=== PATIENT | female | born 1945 | race Caucasian/White ===

== ENCOUNTER → 2017-01-03 | Outpatient (CLI) | payer OTHER, BC ==
[~2017-01-03] MED LIST: ASPI-205 PO; CYCL10TA6 PO; LEVO88TA PO; OMEGCAP2 PO; TYLOTC500 PO; VITAMIN D PO
--- NOTE | 2017-01-03 17:31 | DIAGNOSTIC IMAGING REPORT ---
ULTRASOUND RIGHT LOWER EXTREMITY VENOUS CLINICAL HISTORY: Right leg pain and swelling. COMPARISON STUDY: No priors. TECHNIQUE: Real-time, grayscale, and color Doppler sonography of the deep veins of the right lower extremity was performed from the inguinal crease to the calf. Compression and augmentation were utilized. FINDINGS: There is no sonographic evidence of deep venous thrombosis identified in the right lower extremity. The common femoral, superficial femoral, and popliteal veins are patent and normally compressible. The greater saphenous vein and the profunda femoris vein at the junction with the common femoral vein are clear. The visualized calf veins are patent. A small popliteal cyst measures 4.0 cm in length. IMPRESSION: 1. There is no sonographic evidence of deep venous thrombosis identified in the right lower extremity. 2. Small popliteal cyst. Electronically signed by: Juan Flowers M.D. 01/03/2017 5:29 PM Dictated Date/Time: 01/03/2017 5:29 PM
== END | disposition home or self-care (01) ==
LOC: C.ULTR 16:56
PROVIDERS: ATTEND Family Medicine
DX: M79.604 Pain in right leg (principal)

== ENCOUNTER → 2017-06-02 | Outpatient (CLI) | payer OTHER, BC ==
[2017-06-02 15:08] LABS: BLOOD UREA NITROGEN 21 mg/dl (7-18); CREATININE 0.75 mg/dl (0.60-1.20)
== END | disposition home or self-care (01) ==
LOC: C.LAB 13:22
PROVIDERS: ATTEND Podiatrist Foot & Ankle Surgery
DX: M72.2 Plantar fascial fibromatosis (principal)

== ENCOUNTER → 2017-06-08 | Outpatient (CLI) | payer OTHER, BC ==
[~2017-06-08] MED LIST changes: +GADAVIST IV PRN
--- NOTE | 2017-06-08 18:32 | DIAGNOSTIC IMAGING REPORT ---
MRI OF THE LEFT MID AND HINDFOOT WITHOUT A WITH GADOLINIUM CLINICAL HISTORY: M72.2 plantar fascial fibromatosis. Left foot pain. History of steroid injections. COMPARISON STUDY: No previous studies for comparison. FINDINGS: Imaging was performed in the sagittal, axial, and coronal planes, before and after the administration of 5.7 cc of intravenous Gadavist. There are no areas of marrow edema to indicate occult fracture or bone bruise. There are no areas of marrow edema to indicate osteomyelitis. There is a 5 mm focus of increased T2 signal within the medial talar dome. This likely represents either a degenerative subchondral cyst, or an old osteochondral defect with intact overlying cartilage. There is no evidence of a pathologic joint effusion. The Achilles tendon appears normal. There is thickening, edema, and enhancement of the medial plantar fascia posteriorly. The findings are indicative of a plantar fasciitis. There is no evidence of tendon rupture or Carole synovitis. IMPRESSION: Thickening, edema, and enhancement of the medial plantar fascia posteriorly. The findings are indicative of plantar fasciitis. Electronically signed by: Mark Maloney M.D. 06/08/2017 6:31 PM Dictated Date/Time: 06/08/2017 6:23 PM
== END | disposition home or self-care (01) ==
LOC: C.MRI 16:33
PROVIDERS: ATTEND Podiatrist Foot & Ankle Surgery
DX: M72.2 Plantar fascial fibromatosis (principal)

== ENCOUNTER → 2017-10-26 | Outpatient (CLI) | payer OTHER, BC ==
[~2017-10-26] MED LIST changes: -ASPI-205 PO; -GADAVIST IV PRN; +[UNRECOGNIZED DRUG - CODE] PO
--- NOTE | 2017-10-26 15:56 | DIAGNOSTIC IMAGING REPORT ---
KUB HISTORY: Acute left-sided abdominal pain ABDOMINAL PAIN COMPARISON: CT abdomen 06/12/2007 FINDINGS: The bowel gas pattern is non-obstructive. Moderate pancolonic stool. There is no organomegaly. No renal calculi. No ureteral calculi. Probable phleboliths of the pelvis. No pneumoperitoneum or pneumatosis. No fracture. IMPRESSION: 1. Nonobstructive bowel gas pattern. 2. Moderate pancolonic stool suggests constipation. 3. No renal or ureteral calculi. Electronically signed by: Babak Garay M.D. 10/26/2017 3:55 PM Dictated Date/Time: 10/26/2017 3:53 PM
== END | disposition home or self-care (01) ==
LOC: C.RAD 15:40
PROVIDERS: ATTEND Family Medicine
DX: R10.84 Generalized abdominal pain (principal)

== ENCOUNTER 2019-11-13 04:49 | Observation (INO) ==
--- NOTE | 2019-09-13 09:30 | PAT Medication Instructions ---
Medication Instructions Date of Service September 13, 2019 Home Medications anastrozole 1 mg PO QAM calcium carbonate-vitamin D3 [Calcium 600 + D(3)] 1 tab PO QAM cholecalciferol (vitamin D3) [Vitamin D3] 2,000 unit PO QAM levothyroxine 100 mcg PO QAM Multivitamin Women 50 Plus] 1 tab PO QAM omega-3 fatty acids-fish oil [Fish Oil] 1 cap PO QAM red yeast rice 600 mg PO QAM ASK your prescriber and surgeon anastrozole 1 mg PO QAM STOP taking 2 weeks before surgery (or as soon as possible if surgery is within 2 weeks) omega-3 fatty acids-fish oil [Fish Oil] 1 cap PO QAM red yeast rice 600 mg PO QAM DO NOT take the morning of surgery calcium carbonate-vitamin D3 [Calcium 600 + D(3)] 1 tab PO QAM cholecalciferol (vitamin D3) [Vitamin D3] 2,000 unit PO QAM Multivitamin Women 50 Plus] 1 tab PO QAM Take morning of surgery With a small sip of water, OTHERWISE NOTHING TO EAT OR DRINK AFTER MIDNIGHT: levothyroxine 100 mcg PO QAM Other Notes If you have any questions please call us at [phone] or [phone] or [phone] or [phone]
--- NOTE | 2019-09-16 08:23 | Anesthesiology Consultation ---
Date of Service September 16, 2019 Assessment & Plan (1) Encounter for pre-operative examination: Awaiting review of preop testing (labs, EKG, CXR). Chart Review Chart Review: Patient seen in Pre Admission Testing Teaching & Discussion Pre-Anesthesia Teaching/Discussion Notes: Instructed NPO after midnight before surgery,except medications with 15 cc of water. Medication instructions provi ded according to the PAT guidelines. History Surgery Operation Date: 10/10/19 11:10 Proposed Procedures p Right Knee Arthroplasty Uni Compartment versus Total Knee Replacement - Twan Campoverde MD Height/Weight Height: 5 ft 2 in Weight: 60.2 kg Allergies Allergy/AdvReac Type Severity Reaction Status Date / Time Sulfa (Sulfonamide AdvReac Severe GI SYMPTOMS Verified 09/16/19 08:39 Antibiotics) Medications Home Medications Medication Instructions Recorded Confirmed Last Taken anastrozole 1 mg PO QAM 09/09/19 09/09/19 Unknown calcium carbonate-vitamin D3 1 tab PO QAM 09/09/19 09/09/19 Unknown [Calcium 600 + D(3)] cholecalciferol (vitamin D3) 2,000 unit PO QAM 09/09/19 09/09/19 Unknown [Vitamin D3] levothyroxine 100 mcg PO QAM 09/09/19 09/09/19 Unknown [id number] 1 tab PO QAM 09/09/19 09/09/19 Unknown [Multivitamin Women 50 Plus] omega-3 fatty acids-fish oil [Fish 1 cap PO QAM 09/09/19 09/09/19 Unknown Oil] red yeast rice 600 mg PO QAM 09/09/19 09/09/19 Unknown Past Medical History Medical History Heartburn controlled with OTC Tums PRN History of hepatitis A resolved with intervention/as child HX: breast cancer s/p chemo/xrt, b/l mastectomy- on anastrazole Hypothyroid Osteoarthritis Exercise / Class Metabolic Activity II 4-5 Yardwork/Stairs/Walk up hill Past Surgical History Surgical History History of carpal tunnel surgery of right wrist History of lumpectomy of both breasts History of mastectomy right and left Hx of breast implants, bilateral Hx of colonoscopy Hx of tubal ligation Past Anesthesia History No Family Hx of Anesthesia Complications and Other *Patient reports with breast expanders removal/implants, she was "slow to wake" and patient had "dry mouth" with anesthesia emergence. She states subsequent surgery/anesthesia without issue.* History of PONV No Hx of PONV and No Hx of Motion Sickness Social History Smoking Status: Never smoker Do You Dip or Chew Tobacco: No Hx Alcohol Use: Yes Alcohol type: wine alcohol intake frequency: a few times a month Hx Substance Use: No Review of Systems Reflux controlled. Patient denies chest pain, shortness of breath, dyspnea on exertion, .cough, wheezing. Physical Exam Vital Signs VITALS BP 132/79 P 87 TEMP 98.1 SP02 95%RA RESP 18 PHYSICAL Full neck and c-spine range of motion. Full TMJ range of motion. TMD 2.5 finger breaths Mallampati Score 3 Dentition: intact, crowns on molars Lungs: clear throughout to auscultation Cardiac: regular rate and rhythm, no murmurs noted Spine: normal Carotid arteries: negative bruit Extremities: no edema Testing Stress Test Date: 01/13/16 Type: exercise Negative exercise stress ECHO for ischemia at 114% MPHR. Indeterminate exercise stress EKG for ischemia secondary to baseline LVH. Good functional status at 8.1 METS. No chest pain. Grade I DD. EF 60-65%. No significant valvular disease.
--- NOTE | 2019-09-16 09:08 | XRay Report ---
XR chest Pre-admission PA/Lat CLINICAL HISTORY: pat preoperative evaluation COMPARISON STUDY: 11/09/2018 FINDINGS: The bones soft tissues and hemidiaphragms are normal. The cardiomediastinal silhouette is n ormal. The lungs are clear. The pulmonary vasculature is normal. IMPRESSION: Negative chest. ACT 112: Negative or not required by law. The above report was generated using voice recognition software. It may contain grammatical, syntax or spelling errors. Electronically signed by: John Heath M.D. 09/16/2019 9:06 AM
[2019-09-16 10:00] LABS: Basophils # (auto) 0.04 K/uL (0-0.2); Basophils % (auto) 0.7 %; Eosinophils # (auto) 0.29 K/uL (0-0.5); Eosinophils % (auto) 4.9 %; Hematocrit (blood only) 40.4 % (37-47); Hemoglobin 13.6 g/dL (12.0-16.0); Immature Granulocytes # (auto) 0.01 K/uL (0.00-0.02); Immature Granulocytes % (auto) 0.2 %; Lymphocytes # (auto) 1.75 K/uL (1.2-3.4); Lymphocytes % (auto) 29.5 %; Mean Corpuscular Hemoglobin 31.1 pg (25-34); Mean Corpuscular Hgb Conc 33.7 g/dL (32-36); Mean Corpuscular Volume 92.2 fL (80-100); Mean Platelet Volume 10.5 fL (7.4-10.4); Monocytes # (auto) 0.68 K/uL (0.11-0.59); Monocytes % (auto) 11.5 %; Neutrophils # (auto) 3.16 K/uL (1.4-6.5); Neutrophils % (auto) 53.2 %; Platelet Count 260 K/uL (130-400); RDW Standard Deviation 44.2 fL (36.4-46.3); Red Blood Count 4.38 M/uL (4.2-5.4); White Blood Count 5.93 K/uL (4.8-10.8)
[2019-09-16 10:15] LABS: Partial Thromboplastin Time 26.5 Seconds (21.0-31.0); Prothrombin Time 10.3 Seconds (9.0-12.0)
[2019-09-16 10:55] LABS: BUN Creatinine Ratio 25.2 (10-20); Calcium 10.1 mg/dl (8.5-10.1); Creatinine Clr Calc Pharmacy 52.4 ml/min; Est GFR (African American) 85.6; Est GFR (Non-African American) 73.8; Potassium 4.4 mmol/L (3.5-5.1)
--- NOTE | 2019-10-06 12:51 | History and Physical Report ---
DATE OF ADMISSION: 10/10/2019 CHIEF COMPLAINT: Persistent right medial knee pain and discomfort. HISTORY OF PRESENT ILLNESS: The patient is a 74-year-old female who presents for surgical treatment of her right knee. She has had a fairly long history of right knee pain and discomfort, describes it has gotten worse over time and less unresponsive to conservative treatment. She has had injection which helped, but it is very temporarily. Pain is mostly all medial. The more she walks, the more it hurts. She limps more as the day goes on. She really like to have her knee fixed. PAST MEDICAL HISTORY: 1. Elevated cholesterol. 2. Occasional irregular heartbeat. 3. Hypothyroidism. 4. Cervical spondylosis. 5. Hepatitis A. 6. Breast cancer x2. 7. Gastroesophageal reflux disease. PAST SURGICAL HISTORY: Include: 1. Tubal ligation. 2. Lumpectomy. 3. Bilateral mastectomy with implants. 4. Revision of her left breast implant. ALLERGIES: SULFA. CURRENT MEDICINES: Include: 1. Synthroid 100 mcg a day. 2. Anastrozole 1 mg. 3. Calcium. 4. Fish oil. 5. Vitamin D. 8. Multivitamin. 9. Red yeast rice. SOCIAL HISTORY: A 74-year-old white female. She is . Does not smoke. One drink per week. MEDICAL DOCTOR: Dr. Cason. FAMILY HISTORY: Noncontributory. REVIEW OF HISTORY: Negative for diabetes, neurologic problem, vascular problems or bleeding disorders. No chest pain or shortness of breath. No DVT or PE. PHYSICAL EXAMINATION: GENERAL: Shows a pleasant, middle-aged female. Looks to be in good health. HEENT: Benign. NECK: Supple, no lymphadenopathy. LUNGS: Clear to auscultation. HEART: Has a regular rate and rhythm. ABDOMEN: Soft, nontender, nondistended. EXTREMITIES: Grossly neurovascularly intact except as follows. Examination of the right knee reveals the patient walks independently. She limps a little bit on the right side. She has got varus alignment to her knee. She has got bony hypertrophy medially. Tender over the medial joint line. Small knee effusion. Range of motion about 5 degrees short of full extension to 125 degrees of flexion. There is no instability. ACL appears intact. X-RAYS: X-rays of the right knee revealed advanced medial compartment arthritis. She has got complete loss of her medial joint space. She has subchondral sclerosis with osteophytes off the medial femoral condyle and medial tibial plateau. The lateral compartment looks well preserved on the stress films. Patellofemoral joint looks pretty clean. ASSESSMENT: A 74-year-old white female with advanced right knee medial compartment DJD. She has failed conservative treatment and elected to proceed with surgical intervention. PLAN: We will take her to the operating room and do a right partial knee replacement. If we get in there and if it is too bad, we will do a full knee replacement. The risks and benefits of this procedure were explained to the patient and include but not limited to DVT, PE, , infection, neurological injury, vascular injury, bleeding problem, pain, limited range of motion, stiffness, failure to relieve her symptoms, incomplete relief of symptoms, need for further surgery in future, fracture, leg length inequality, nerve palsy, dislocation, need for further surgery. The patient understands and desires to proceed. Informed consent was obtained.
--- NOTE | 2019-11-10 12:32 | History and Physical Report ---
DATE OF ADMISSION: 11/13/2019 CHIEF COMPLAINT: Persistent right medial knee pain and discomfort. HISTORY OF PRESENT ILLNESS: The patient is a 74-year-old female who presents for surgical treatment of her right knee. She has got a fairly long history of right knee pain and discomfort that has gradually gotten worse over time. Her symptoms are really localized to the medial side of her knee. She has been through extensive conservative treatment including injections, which helped temporarily, but become less successful over time. The more she walks, the more it hurts. Pain is mostly all medial. She limps more as the day goes on. She has nighttime pain. Difficulty going up and down stairs. She would like to have her right knee fixed. We did schedule her for knee surgery in the past and she had to reschedule, but would now like to proceed. PAST MEDICAL HISTORY: 1. Elevated cholesterol. 2. Occasional irregular heartbeat. 3. Hypothyroidism. 4. Cervical spondylosis. 5. Hepatitis A as a child. 6. Breast cancer x2. 7. Gastroesophageal reflux disease. PAST SURGICAL HISTORY: Includes: 1. Tubal ligation. 2. Lumpectomy. 3. Bilateral mastectomy with implants. 4. Revision of her left breast implant. ALLERGIES: SULFA. CURRENT MEDICINES: Include: 1. Synthroid 100 mcg a day. 2. Anastrozole 1 mg a day. 3. Calcium. 4. Fish oil. 5. Vitamin D. 6. Multivitamin. 7. Red yeast rice. SOCIAL HISTORY: A 74-year-old female. She is . Does not smoke. One drink per week. FAMILY HISTORY: Noncontributory. REVIEW OF HISTORY: Negative for diabetes, neurologic problem, vascular problems or bleeding disorders. Denies any chest pain or shortness of breath. No history of DVT or PE. PHYSICAL EXAMINATION: GENERAL: Reveals a healthy, pleasant middle-aged female. Looks to be in excellent health. HEENT: Benign. NECK: Supple, no lymphadenopathy. LUNGS: Clear to auscultation. HEART: Has a regular rate and rhythm. ABDOMEN: Soft, nontender, nondistended. EXTREMITIES: Grossly neurovascularly intact except as follows: Examination of the right knee reveals the patient walks independently. She does limp a little bit on the right side. She has got varus alignment to her knee. She has got bony hypertrophy medially. Small knee effusion. She is tender over the medial joint line. Range of motion is 5 degrees short of full extension to 125 degrees of flexion. There is no instability. ACL clinically appears intact. X-RAYS: X-rays of the right knee reviewed. Shows advanced medial compartment arthritis. She has complete loss of her medial joint space. She has subchondral sclerosis. She has got osteophytes off the medial femoral condyle and medial tibial plateau. Lateral compartment was pretty well preserved. On stress films, the patellofemoral compartments looked good. ASSESSMENT: A 74-year-old white female with advanced right knee medial compartment degenerative joint disease. She has failed all conservative treatment and would like to proceed with surgical treatment. PLAN: We are going to take her to the operating room and do a right partial knee replacement. If we get in there and the disease is too bad, we will do a full knee replacement. The risks and benefits of right partial and full knee replacement were explained to the patient including but not limited to DVT, PE, , infection, neurological injury, vascular injury, bleeding problem, pain, limited range of motion, stiffness, failure to relieve her symptoms, incomplete relief of symptoms, need for further surgery in the future, fracture, leg length inequality, nerve palsy, etc. The patient understands and desires to proceed. Informed consent was obtained.
[~2019-11-13 04:49] MED LIST changes: +ACETAMINOPHEN 500 MG TAB PO SCH; +BUPIVACAINE LIPOSOME/PF 266 MG, BUPIVACAINE/EPINEPHRINE 50 ML, SODIUM CHLORIDE 0.9% 30 ... INFIL SCH; +CEFAZOLIN 2000MG 2,000 MG/15 ML SYR IV SCH; -CYCL10TA6 PO; +FAMOTIDINE 20 MG TAB PO SCH; +GABAPENTIN 300 MG CAP PO SCH; -LEVO88TA PO; +LR 500ML BOLUS, THEN 15ML/HR IV SCH; +LR 60ML/HR IV SCH; +METOCLOPRAMIDE HCL 10 MG TABLET PO SCH; -OMEGCAP2 PO; +TRANEXAMIC ACID 1,000 MG **IV Intra-op IV SCH; -TYLOTC500 PO; -VITAMIN D PO; -[UNRECOGNIZED DRUG - CODE] PO
[2019-11-13] MEDS ORDERED: ACETAMINOPHEN 500 MG TAB PO SCH (06:00)
[2019-11-13] MEDS ORDERED: GABAPENTIN 300 MG CAP PO SCH (06:00)
[2019-11-13] MEDS ORDERED: FAMOTIDINE 20 MG TAB PO SCH (06:00)
[2019-11-13] MEDS ORDERED: TRANEXAMIC ACID 1,000 MG **IV Intra-op IV SCH (06:00)
[2019-11-13] MEDS ORDERED: METOCLOPRAMIDE HCL 10 MG TABLET PO SCH (06:00)
[2019-11-13] MEDS ORDERED: LR 500ML BOLUS, THEN 15ML/HR IV SCH (06:00)
[2019-11-13] MEDS ORDERED: CEFAZOLIN 2000MG 2,000 MG/15 ML SYR IV SCH (06:00)
[2019-11-13] MEDS ORDERED: BUPIVACAINE LIPOSOME/PF 266 MG, BUPIVACAINE/EPINEPHRINE 50 ML, SODIUM CHLORIDE 0.9% 30 ... INFIL SCH (06:00)
[2019-11-13] MEDS ORDERED: LR 60ML/HR IV SCH (06:00)
[2019-11-13] MEDS ORDERED: BUPIVACAINE 0.5 % 5 MG/1 ML PF 10ML VIAL ONE (06:27)
[2019-11-13] MEDS ORDERED: DEXAMETHASONE SOD INJ 4 MG/ML VIAL ONE (06:27)
[2019-11-13] MEDS ORDERED: BUPIVACAINE/EPINEPHRINE 0.25% 1:200,000 30 ML VIAL ONE ×2 (06:27→06:39)
[2019-11-13] MEDS ORDERED: BACITRACIN INJ 50,000 UNIT VIAL ONE (06:39)
[2019-11-13] MEDS ORDERED: SODIUM CHLORIDE 0.9% PF 50 ML VIAL ONE (06:39)
[2019-11-13] MEDS ORDERED: BUPIVACAINE LIPOSOME 1.3% 266 MG/20 ML VIAL ONE (06:39)
[2019-11-13] MEDS ORDERED: fentaNYL citrate 100 MCG/2 ML VIAL IV PRN (06:46)
[2019-11-13] MEDS ORDERED: ePHEDrine sulfate 50 MG/ML AMP IV PRN (06:46)
[2019-11-13] MEDS ORDERED: ONDANSETRON INJ 2 MG/ML 2 ML VIAL IV PRN ×2 (06:46→09:38)
[2019-11-13] MEDS ORDERED: ATROPINE SULFATE 0.1 MG/ML 10ML SYR IV PRN (06:46)
[2019-11-13] MEDS ORDERED: MIDAZOLAM HCL 1 MG/ML 2ML VIAL ONE ×3 (06:47→06:53)
[2019-11-13] MEDS ORDERED: PROPOFOL IV EMULSION 10 MG/ML 20 ML VIAL IV ONE (06:48)
[2019-11-13] MEDS ORDERED: fentaNYL citrate 100 MCG/2 ML VIAL ONE (06:53)
--- NOTE | 2019-11-13 06:54 | History & Physical Bridge Note ---
Date of Service November 13, 2019 History & Physical Bridge Note I have examined the patient, reviewed the History & Physical and in the interval since the performance of the History & Physical I have noted the following changes of clinical significance: no changes noted
--- NOTE | 2019-11-13 08:47 | Post Operative Brief Note ---
PG Immediate Post Op with CF Date of Surgery November 13, 2019 Pre & Post Diagnosis Operation Date: 11/13/19 07:00 Pre-Op Diagnosis: Right Knee Degenerative Joint Disease w/Knee Pain Post-Op Diagnosis: Right Knee Degenerative Joint Disease w/Knee Pain I identified the patient and participated in the time-out.: Yes Procedure Operation Date: 11/13/19 07:00 Actual Procedures p Right Knee Arthoplasty Uni Compartment (Right) - Twan Campoverde MD Surgeon Twan Campoverde MD Range Aide Shantell, [facility] Estimated Blood Loss 25 Findings Consistent with Post-Op Diagnosis Fluids 1300 cc Specimens Specimen Description: Permanent Specimen: A) Right Knee Bone and Tissue Drains Gerber Catheter Anesthesia Type Spinal MAC Complications none Disposition Accompanied Patient To Recovery: No Disposition: Recovery Room
--- NOTE | 2019-11-13 09:00 | Operative Report ---
Post Operative Report Pre & Post Diagnosis Operation Date: 11/13/19 07:00 Pre-Op Diagnosis: Right Knee Degenerative Joint Disease w/Knee Pain Post-Op Diagnosis: Right Knee Degenerative Joint Disease w/Knee Pain I identified the patient and participated in the time-out.: Yes Procedure Operation Date: 11/13/19 07:00 Actual Procedures p Right Knee Arthoplasty Uni Compartment (Right) - Twan Campoverde MD Surgeon Twan Campoverde MD Pasting Inspector Shantell, [facility] Estimated Blood Loss 25 Findings Consistent with Post-Op Diagnosis Operative findings revealed advanced right knee DJD with a pretty extensive gra de 4 [id number] disease of the medial femoral condyle medial tibial plateau with eburnation of both surfaces. She had a varus deformity to her knee. Her lateral and patellofemoral compartments were well preserved. She had a moderate-sized joint effusion and a moderate Ferrer's cyst. Fluids 1300 cc. Specimens Right knee sent to pathology. Drains None. Anesthesia Type Spinal MAC Complications none Disposition Disposition: Recovery Room Indications Patient is a 74-year-old female is had a very long history of a right knee pain discomfort. She been through extensive conservative treatment the past which became less successful over time. Her symptoms localize the medial side of her knee. X-rays show advanced medial compartment arthritis. The lateral and patellofemoral compartments look well-preserved. She elected proceed with right partial knee replacement. Description of Procedure Operative implants consist of: 1. Biomet Blackford size small femoral component. 2. Biomet right medial size A tibial tray. 3. 4 mm mobile-bearing polyethylene insert. Patient was taken to the operating room identified and placed on the operating table supine position protectors were properly padded. IV antibiotics arrived by anesthesia team. A spinal anesthetic and abductor canal block had provided holding area. Gerber catheter was placed in sterile fashion. Right thigh tip was then placed in the right lower extremities and prepped and draped in usual sterile fashion. The right leg was elevated exsanguinated with use of an Esmarch and turns placed at 300 mmHg. An anterior approach to the right knee was then performed to longitudinal incision beginning at the superior pole patella then extending just medial to the tibial tubercle. Sharp dissection was cut through subcutaneous tissue down to the extensor mechanism. Medial parapatellar arthrotomy incision was made. Some slight subperiosteal dissection was carried out medially taking great care to protect the MCL ligament at all times. I resected some of the fat pad. I then looked at the lateral compartment is well preserved. Her ACL was intact. The trochlea looked well preserved. We elected proceed with a partial knee replacement. The osteophytes were taken off the intercondylar notch area. The femur was sized to a small. The small spoon was placed. The external tibial alignment jig was then placed in the interface the tibia and attached to the spoon with a 4G clamp. The tibial guide was then pinned in place. The proximal tibial cut was made. The tibia sized to a size A. Attention drawn the femur. The intramedullary hole was then drilled for the intramedullary guide selina. The guide selina was placed. The femoral template was placed set at 4. It was attached to the IM selina and the holes were drilled for the femoral component. The posterior cutting guide was placed. Posterior cut was made. The 0 spigot was then used to mill the distal femur. The medial meniscus was excised. We then trialed the knee and the 4 feeler gauge fit well in flexion and the one in extension. Therefore all implants were removed and the 3 spigot was placed. Distal femur was milled again. We then trialed the knee and the 4 feeler gauge fit appropriately in both flexion extension. I elected to use these implants. The implants were removed. Posterior osteophyte cutting guide was placed. The osteotome was used to remove the posterior osteophyte. The milling device was used to open milled the anterior femur for the femoral component. The cement drill was used to create some holes in the distal femur for cement and interdigitation. The tibial tray was pinned in place. The toothbrush blade saw was used to create the keel for the tibial tray. The wound was then irrigated. We then trialed the knee one final time and the 4 feeler gauge fit appropriately in both flexion and extension. All trial implants were removed. I irrigated the wound extensively. A single batch of Palacos G cement was mixed. A Biomet Blackford size small femoral component and a size 8 tibial tray were then cemented in place. Great care was taken to remove all extraneous cement. I then placed a 4 feeler gauge the knee was brought out into 30 degrees short of full extension and pressurized until the cement hardened. A final cement check was then performed. We then trialed the knee again and I selected a 4 insert. The permanent 4 insert was then placed and tracked nicely. The knee was well-balanced. We proceeded with closure. The wounds irrigated copious pulsatile lavage solution. I did inject locally with 100 cc of combination of 20 cc of Exparel, 30 cc of normal saline, 50 cc of quarter percent Marcaine with epinephrine. Patient did receive 1 g of tranexamic acid per the tourniquet was then let down for turn time 58 minutes but hemostasis assured with electrocautery. The wound was once again irrigated. Extensor mechanism then closed with #1 Vicryl suture in [id number] fashion for extensor mechanism checked found to be intact the subcutaneous tissue then closed with 2 Dexon suture in a buried interrupted fashion skin was closed skin kate. Legs then cleaned dried a sterile dressing composed Xeroform, 4 x 4's, sterile cast padding, Adiel bandage were applied. Patient then transferred to the recovery room in stable condition. Patient tolerated procedure well no complications. I attest to the content of the Intraoperative Record and any orders documented therein. Any exceptions are noted below.
--- NOTE | 2019-11-13 09:15 | XRay Report ---
XR knee RT 1 or 2V routine HISTORY: 74 years-old Female Surgical Post Op degenerative joint disease COMPARISON: Knee radiographs 10/03/2019 TECHNIQUE: 2 views of the right knee FINDINGS: Medial compartment hemiarthroplasty changes. There is satisfactory alignment of the knee. No acute fr acture or retained foreign body. Moderate patellofemoral without significant lateral compartment oste oarthritis. Mildly demineralized appearance the bones. Anterior midline skin kate are noted along with expected postsurgical soft tissue swelling and deep tissue air with surgical drainage catheter. IMPRESSION: Expected postoperative changes status post medial compartment hemiarthroplasty. ACT 112: Negative or not required by law. The above report was generated using voice recognition software. It may contain grammatical, syntax o r spelling errors. Electronically signed by: Babak Garay M.D. 11/13/2019 9:13 AM
--- NOTE | 2019-11-13 09:34 | Anesthesiology Progress Note ---
Date of Service November 13, 2019 Anesthesia Post Procedure Vital Signs Vital Signs: Temp Pulse Pulse Resp BP Pulse Ox 11/13/19 09:25 36.7 C 83 16 126/74 99 11/13/19 09:15 82 16 113/73 99 11/13/19 09:05 78 16 123/71 100 11/13/19 08:55 36.7 C 88 16 137/69 99 11/13/19 05:50 36.8 C 79 20 139/90 94 Pain Intensity Right Knee: Pain Intensity: 7 Transfer of Care Handoff Completed per policy Notes Mental Status: alert / awake / arousable and participated in evaluation Patient Amnestic to Procedure: Yes Nausea / Vomiting: adequately controlled Pain: adequately controlled Airway Patency, RR, SpO2: stable & adequate BP & HR: stable & adequate Hydration State: stable & adequate Neuraxial Anesthesia: was administered and sensory block is resolving Anesthetic Complications: no major complications apparent and Pt Satisfied with anesthetic care
[2019-11-13] MEDS ORDERED: HYDROmorphone INJ 0.5 MG/0.5 ML SYR IV PRN (09:38)
[2019-11-13] MEDS ORDERED: [UNRECOGNIZED DRUG - OTHER] PO SCH (09:38)
[2019-11-13] MEDS ORDERED: MAGNESIUM HYDROXIDE SUSP 30 ML UDC PO PRN (09:38)
[2019-11-13] MEDS ORDERED: METOCLOPRAMIDE HCL INJ 5 MG/ML 2 ML VIAL IV PRN (09:38)
[2019-11-13] MEDS ORDERED: TRAMADOL HCL 50 MG TABLET PO PRN (09:38)
[2019-11-13] MEDS ORDERED: NALOXONE HCL 0.4 MG/1 ML VIAL/CARP IV PRN (09:38)
[2019-11-13] MEDS ORDERED: NON-FORMULARY MEDICATION (Red Yeast Rice 600 MG) PO SCH (09:38)
[2019-11-13] MEDS ORDERED: ALUMINUM/MAGNESIUM SUSP 30 ML UDC PO PRN (09:38)
[2019-11-13] MEDS ORDERED: MULTIVIT MIN IRON FA LUTEIN PO SCH (09:38)
[2019-11-13] MEDS ORDERED: bisacodyL 10 MG SUPP PR PRN (09:38)
[2019-11-13] MEDS: CHOLECALCIFEROL 1,000 UNITS 25 MCG TAB PO SCH (11:13)
[2019-11-13] MEDS: MULTIVITAMIN TAB PO SCH (11:13)
[2019-11-13] MEDS: OMEGA-3 (PURIFIED FISH OIL) 1 GM CAP PO SCH (11:13)
[2019-11-13] MEDS: ASPIRIN 81 MG ECTAB PO SCH ×2 (11:14→21:45)
[2019-11-13] MEDS: LEVOTHYROXINE SODIUM 100 MCG TABLET PO SCH (11:14)
[2019-11-13] MEDS: DOCUSATE SODIUM 100 MG CAP PO SCH ×2 (11:15→21:45)
[2019-11-13] MEDS: KETOROLAC TROMETHAMINE 15 MG/ML VIAL IV SCH ×3 (11:16→22:10)
[2019-11-13] MEDS: SODIUM CHLORIDE 0.9% 1000ML 1,000 ML IV SCH ×2 (12:43→22:45)
[2019-11-13] MEDS: ANASTROZOLE 1 MG TAB PO SCH (14:10)
[2019-11-13] MEDS: ACETAMINOPHEN 500 MG TAB PO SCH ×2 (14:12→21:45)
[2019-11-13] MEDS: CEFAZOLIN 1000MG 1,000 MG/7.5 ML SYR IV SCH ×2 (14:18→22:11)
[2019-11-13] MEDS: ASCORBIC ACID 500 MG TAB PO SCH (16:28)
[2019-11-13] MEDS ORDERED: SENNA 8.6 MG TAB PO SCH (21:00)
[2019-11-14] MEDS: LEVOTHYROXINE SODIUM 100 MCG TABLET PO SCH (05:43)
[2019-11-14] MEDS: KETOROLAC TROMETHAMINE 15 MG/ML VIAL IV SCH ×2 (05:43→10:53)
[2019-11-14] MEDS: ACETAMINOPHEN 500 MG TAB PO SCH (05:43)
--- NOTE | 2019-11-14 07:42 | Anesthesiology Progress Note ---
Date of Service November 14, 2019 Anesthesia Post Procedure Vital Signs Vital Signs: Temp Pulse Pulse Resp BP Pulse Ox 11/14/19 07:18 36.8 C 69 16 148/81 H 99 11/14/19 02:50 36.5 C 75 16 151/84 H 97 11/13/19 23:28 36.7 C 69 16 150/78 H 93 11/13/19 15:05 36.7 C 86 16 127/67 95 11/13/19 12:30 36.5 C 75 16 118/73 96 11/13/19 11:26 36.4 C L 72 16 131/75 97 11/13/19 10:30 36.4 C L 78 16 148/86 H 95 11/13/19 09:57 34.7 C L 76 16 140/80 97 11/13/19 09:30 36.5 C 80 16 127/68 11/13/19 09:25 36.7 C 83 16 126/74 99 11/13/19 09:15 82 16 113/73 99 11/13/19 09:05 78 16 123/71 100 11/13/19 08:55 36.7 C 88 16 137/69 99 Pain Intensity Right Knee: Pain Intensity: 7 Notes Mental Status: alert / awake / arousable and participated in evaluation Patient Amnestic to Procedure: Yes Nausea / Vomiting: adequately controlled Pain: adequately controlled Airway Patency, RR, SpO2: stable & adequate BP & HR: stable & adequate Hydration State: stable & adequate Neuraxial Anesthesia: was administered and sensory block resolved Anesthetic Complications: no major complications apparent and Pt Satisfied with anesthetic care
[2019-11-14] MEDS ORDERED: dexAMETHasone 4 MG TAB PO SCH (08:00)
[2019-11-14] MEDS ORDERED: CALCIUM 600MG + VIT D 400 IU TAB PO SCH (09:00)
[2019-11-14] MEDS: DOCUSATE SODIUM 100 MG CAP PO SCH (09:12)
[2019-11-14] MEDS: OMEGA-3 (PURIFIED FISH OIL) 1 GM CAP PO SCH (09:12)
[2019-11-14] MEDS: ANASTROZOLE 1 MG TAB PO SCH (09:12)
[2019-11-14] MEDS: ASPIRIN 81 MG ECTAB PO SCH (09:12)
[2019-11-14] MEDS: MULTIVITAMIN TAB PO SCH (09:12)
[2019-11-14] MEDS: CHOLECALCIFEROL 1,000 UNITS 25 MCG TAB PO SCH (09:12)
[2019-11-14] MEDS: ASCORBIC ACID 500 MG TAB PO SCH (09:13)
--- NOTE | 2019-11-14 15:27 | Progress Note ---
DATE: 11/14/2019 SUBJECTIVE: 74-year-old white female postop day 1 from a right partial knee replacement. She is doing pretty well. Really not having much pain at all in the knee. Therapy has gone well. Ready to go home. OBJECTIVE: VITAL SIGNS: Temperature 36.8. Vital signs stable. GENERAL: Shows a pleasant, middle-aged female. She is lying in bed, looks pretty comfortable this morning. LUNGS: Clear to auscultation. HEART: Regular rate and rhythm. ABDOMEN: Soft, nontender, nondistended. EXTREMITIES: Grossly neurovascularly intact except as follows: Examination of the right leg reveals the leg to be well aligned. Dressing is clean, dry and intact. She can do a straight leg raise. She can dorsiflex and plantarflex her foot appropriately. She is neurologically intact. ASSESSMENT: 74-year-old white female postop day 1 from a right partial knee replacement, doing well. Pain is controlled. She is neurologically intact. PLAN: 1. DVT prophylaxis including thigh-high TEDs, SCDs, and aspirin twice a day for a month. 2. PT/OT. She can weightbear as tolerated on the right leg. 3. Pain control, doing well with current pain regimen. We are sending her home on some Toradol and see if this helps her other knee. 4. Disposition: Plan to discharge to home with some home health after therapy today.
--- NOTE | 2019-11-15 15:45 | Discharge Summary ---
ADMITTING PHYSICIAN AND SURGEON: Dr. Twan Campoverde. ADMITTING DIAGNOSIS: Right knee degenerative joint disease. Right knee degenerative joint disease. SURGERY PERFORMED: Right knee unicompartmental arthroplasty. SECONDARY DIAGNOSES: Elevated cholesterol, irregular heartbeat, hypothyroidism, cervical spondylosis, hepatitis A breast cancer, gastroesophageal reflux disease. CONSULTS: None obtained. HISTORY AND PHYSICAL EXAMINATION: Well documented in the patient's chart. HOSPITAL COURSE: The patient was admitted on 11/14/2019 underwent partial knee replacement, tolerated the procedure well. There were no complications. She was transferred to the PACU postoperatively and later to the orthopedic for further care. She was given Ancef for antibiotic prophylaxis, BETH stockings, SCDs and aspirin for DVT prophylaxis. Vital signs were monitored during her hospital stay and remained stable. She did not require any blood transfusions. There were no complications. On postoperative day 1 she was tolerating a regular diet, pain was controlled with oral pain medicine. She was participating in physical therapy. Postop day 1 she was discharged home. She was given printed discharge instructions as well as new prescriptions for extra strength Tylenol, aspirin, ketorolac and tramadol. Continue home medicines with the exception of her home dosing of Tylenol, which was changed. Continue physical therapy, weightbearing as tolerated, BETH stockings. Follow up approximately 2 weeks postop or sooner if there are any problems or concerns.
== END 2019-11-14 11:40 | disposition home or self-care (01) ==
LOC: ASU 04:49 → 3E 04:49

== ENCOUNTER 2024-03-10 12:04 | Inpatient (IN) ==
[2024-03-10] MEDS: SODIUM CHLORIDE 0.9% 1,000 ML IV STA (12:41)
--- NOTE | 2024-03-10 12:57 | Emergency Department Note ---
Impression & Plan Babesiosis, Lyme disease, Hyponatremia, Weakness, Elevated liver function tests ED Provider Note Provider: Moreno Kramer MD DATE OF SERVICE: 03/10/2024 CHIEF COMPLAINT: Cough fatigue HISTORY OF PRESENT ILLNESS: Patient is a 79-year-old female history of hypothyroidism reports that she was at her primary doctor's for weakness body aches and fever. Was given a prescription then for cefdinir but they were unsure exactly what was causing this but to try the antibiotic. Went to express care yesterday for similar symptoms. Given an inhaler. Denies significant chest pain or shortness of breath but states feeling worse and having cough. Fever of 103 this morning. Did take some Tylenol prior to coming in. Some decreased intake but no nausea vomiting or abdominal pain. Has been having overnight some urinary frequency and may be bit of an odd color. Denies burning with urination however. No diarrhea. No falls or syncope. No other sick contacts or recent travel reported. Did use some Coricidin albuterol. Maybe a small red dot on the left forearm but no other significant rashes. No significant leg swelling reported. Generally weak and fatigued. Again generalized myalgias with minimal to no headache. PAST MEDICAL HISTORY: As noted above MEDICATIONS: Reviewed home medications SOCIAL HISTORY: PHYSICAL EXAM: GENERAL: alert and oriented in no acute distress on stretcher but very weak and fatigued in appearance, febrile Head: normocephalic and atraumatic EYES: No injection, discharge or icterus. PERRL, EOMI. NECK: Trachea midline. Supple. With good range of motion ENT: Mucous membranes pink and moist. Pharynx without erythema or exudate. LUNGS: Airway patent. No retractions. Breath sounds clear with good air entry bilaterally. HEART: Regular rate and rhythm. No chest wall tenderness ABDOMEN: Soft and non-tender, without guarding or rebound. No masses appreciable. SKIN: Acyanotic, warm, dry, with only 1 small about millimeter red dot on the left forearm appears like trace abrasion without surrounding erythema or crepitus. EXTREMITIES: Without swelling, tenderness or deformity NEUROLOGICAL: No focal deficits moving all extremities. No aphasia. No facial droop or slurred speech. EK beats per and sinus tachycardia. No PVC or PAC. No acute ST segment elevation or depression with a bit of artifact. QTc 42. CONTINUOUS CARDIAC MONITORING: was ordered and showed a heart rate of 80s-100s bpm in normal sinus rhythm to sinus tachycardia Patient's laboratory studies and imaging reviewed. Differential includes Viral syndrome, otitis, pharyngitis, pneumonia, influenza, meningitis, urinary tract infection, sepsis, bacteremia, dehydration, electrolyte abnormality, kidney dysfunction, perforation, obstruction, kidney stone, appendicitis, diverticulitis, cholecystitis, DVT, PE, ACS, as well as other pathologies. IMPRESSION/MEDICAL DECISION MAKING: Patient febrile borderline hypotensive and tachycardic here and very fatigued in appearance. Does not appear altered or meningitic. Has been on cefdinir for several days and seen by primary care as well as urgent care yesterday. Will obtain chest x-ray, respiratory viral panel, blood work including cultures and lactate. Given a liter of IV fluid to get started. Benign abdomen without acute tenderness here. Will attempt to obtain urine sample. Blood work here with mild anemia. No significant cytosis. Hyponatremia 129 with mild transaminitis and bilirubin 4.70. Procalcitonin elevated 3.7. Equivocal Lyme titer but blood smear and discussion with pathology is indicative of babesiosis that she has no travel risk factors. Given azithromycin, atovaquone, and a dose of ceftriaxone given the equivocal Lyme screen at this time. Given her age with signs of sepsis and the LFT abnormalities with babesiosis will bring her into the hospital for observation. Patient is very much in agreement given her weakness. Hospitalist team was contacted. DIAGNOSIS: Sepsis, babesiosis, weakness, hyponatremia DISPOSITION: Hospitalist will evaluate Patient was agreeable with this plan. Past Med/Surg History Problem List (Updated 03/10/24 @ 15:45 by David Coyne PA-C) Elevated transaminase level Thrombocytopenia Hyponatremia Elevated troponin Lyme disease Babesiosis Hematoma of left lower leg Bursitis of hip, right Lumbar spondylosis Status post right partial knee replacement Heartburn controlled with OTC Tums PRN HX: breast cancer s/p chemo/xrt, b/l mastectomy- on anastrazole Hypothyroid Osteoarthritis Encounter for annual routine gynecological examination Reflex incontinence (Acute) Pes anserine bursitis Degenerative arthritis of knee, bilateral Medical History Migraine headache History of hepatitis A Radius distal fracture Surgical History Hx of colonoscopy Hx of breast implants, bilateral Hx of tubal ligation History of carpal tunnel surgery of right wrist History of lumpectomy of both breasts History of mastectomy Family History Mother Breast cancer Pulmonary embolism Father Parkinson disease Denies family history of Ovarian cancer Colorectal cancer Social History Smoking Status: Never smoker Second Hand Exposure: No; Do You Dip or Chew Tobacco: No; Hx Alcohol Use: Yes Alcohol type: wine Hx Substance Use: No Preferred Language: Bur[place]ian Communication Ability: Effective Beliefs That Will Affect Care: None Current Living Situation: Spouse Feels Safe at Home: Yes Assistive Devices: Glasses and Walker Allergies Allergies Allergy/AdvReac Type Severity Reaction Status Date / Time Sulfa (Sulfonamide AdvReac Severe GI SYMPTOMS Verified 03/09/24 09:16 Antibiotics) Home Meds Home Medications Medication Instructions Recorded Confirmed calcium carbonate 600 mg-vitamin 1 tab PO QAM 09/09/19 03/10/24 D3 10 mcg (400 unit) tablet (Calcium 600 + D(3)) cholecalciferol (vitamin D3) 50 2,000 unit PO QAM 09/09/19 03/10/24 mcg (2,000 unit) capsule (Vitamin D3) omega-3 fatty acids-fish oil 360 1 cap PO QAM 09/09/19 03/10/24 mg-1,200 mg capsule (Fish Oil) red yeast rice 600 mg capsule 600 mg PO QAM 09/09/19 03/10/24 esomeprazole magnesium 40 mg 40 mg PO DAILY 05/14/20 03/10/24 capsule,delayed release (Nexium) hydrocortisone 2.5 % topical cream 1 applic topical 05/16/22 03/09/24 with perineal applicator levothyroxine 112 mcg tablet 112 mcg PO QAM 05/16/22 03/10/24 Previous Rx's Medication Instructions Recorded albuterol sulfate 90 mcg/actuation 2 puff inhalation Q6H PRN 03/09/24 aerosol inhaler shortness of breath or wheezing #8.5 grams Results & Data (ED) Vital Signs Vital Signs - 24 hr 03/10/24 12:07 03/10/24 12:27 03/10/24 12:37 Temperature 37.4 C 38.1 C H Temperature Source Oral Oral Pulse Rate 105 H 101 H Pulse Rate [Apical] Pulse Rhythm [Apical] Pulse Strength [Apical] Respiratory Rate 21 Respiratory Effort / Characteristics Respiratory Depth Respiratory Pattern Blood Pressure 96/59 L Blood Pressure [Left Arm] Blood Pressure Mean 71 Blood Pressure Mean [Left Arm] Blood Pressure Position [Left Arm] Pulse Oximetry 92 Oxygen Delivery Method Room Air Sepsis Recent Fever Within 48 Hours Yes Sepsis New/Unexplained Change in Mental Status N/A Sepsis Action Taken by Nursing No Action Required 03/10/24 13:45 03/10/24 14:42 03/10/24 15:30 Temperature 37.3 C Temperature Source Oral Pulse Rate Pulse Rate [Apical] 98 H 76 Pulse Rhythm [Apical] Regular Pulse Strength [Apical] Normal Respiratory Rate 18 20 Respiratory Effort / Characteristics Non-Labored Spontaneous Non-Labored Spontaneous Respiratory Depth Normal Normal Respiratory Pattern Regular Blood Pressure Blood Pressure [Left Arm] 113/61 113/66 Blood Pressure Mean Blood Pressure Mean [Left Arm] 78 81 Blood Pressure Position [Left Arm] Lying Sitting Pulse Oximetry 93 98 Oxygen Delivery Method Room Air Room Air Sepsis Recent Fever Within 48 Hours Sepsis New/Unexplained Change in Mental Status Sepsis Action Taken by Nursing 03/10/24 16:28 Temperature Temperature Source Pulse Rate 89 Pulse Rate [Apical] Pulse Rhythm [Apical] Pulse Strength [Apical] Respiratory Rate Respiratory Effort / Characteristics Respiratory Depth Respiratory Pattern Blood Pressure Blood Pressure [Left Arm] Blood Pressure Mean Blood Pressure Mean [Left Arm] Blood Pressure Position [Left Arm] Pulse Oximetry Oxygen Delivery Method Sepsis Recent Fever Within 48 Hours Sepsis New/Unexplained Change in Mental Status Sepsis Action Taken by Nursing Laboratory Data 03/10/24 12:25 03/10/24 12:25 Lab Results 03/10/24 03/10/24 03/10/24 Range/Units 12:25 12:47 14:49 WBC 8.48 (4.8-10.8) K/ul RBC 3.65 L (4.20-5.40) M/uL Hgb 10.8 L (12.0-16.0) g/dl Hct 30.9 L (37.0-47.0) % MCV 84.7 (80.0-100.0) fL MCH 29.6 (25.0-34.0) pg MCHC 35.0 (32.0-36.0) g/dL RDW Std Deviation 43.8 (36.4-46.3) fL RDW Coeff of Radu 14.1 (11.5-14.5) % Plt Count 35 L (130-400) K/uL MPV 11.9 (9.4-12.4) fL Immature Gran % (Auto) 0.9 % Neut % (Auto) 69.3 % Lymph % (Auto) 14.5 % [place]ahan % (Auto) 15.2 % Eos % (Auto) 0.0 % Baso % (Auto) 0.1 % Neut # (Auto) 5.87 (1.40-6.50) K/uL Lymph # (Auto) 1.23 (1.20-3.40) K/uL [place] # (Auto) 1.29 H (0.11-0.59) K/uL Eos # (Auto) 0.00 (0.00-0.50) K/uL Baso # (Auto) 0.01 (0.00-0.20) K/uL Immature Gran # (Auto) 0.08 (0.01-0.20) K/uL RBC Morphology Unremarkable PT 13.0 H (9.0-12.0) Seconds INR 1.2 H (0.9-1.1) Sodium 129 L (136-145) mmol/L Potassium 3.5 (3.5-5.1) mmol/L Chloride 97 L (98-107) mmol/L Carbon Dioxide 24 (21-32) mmol/L Anion Gap 8 (3-11) BUN 17 (6-23) mg/dl Creatinine 0.73 (0.6-1.2) mg/dl Est Cr Clr Drug Dosing 52.0 ml/min Est GFR ( Amer) 89.5 ml/min Est GFR (Non-Af Amer) 77.2 ml/min BUN/Creatinine Ratio 23.3 H (10-20) Glucose 144 H (70-99(Fasting)) mg/dl Lactate 1.4 (0.4-2.0) mmol/L Calcium 8.3 L (8.6-10.3) mg/dl Total Bilirubin 4.7 H (0.2-1.0) mg/dl AST 106 H (13-39) U/L ALT 118 H (7-52) U/L Alkaline Phosphatase 225 H (34-104) U/L Troponin I High Sens 23.0 H 22.2 H (0-14) pg/ml Total Protein 6.4 (6.0-8.3) gm/dl Albumin 3.2 L (3.4-5.0) gm/dl Globulin 3.2 (2.5-4.0) gm/dl Albumin/Globulin Ratio 1.0 (0.9-2) Lipase 5 L (11-82) U/L Procalcitonin 3.77 H (0-0.5) ng/ml Urine Color Urine Appearance (Clear) Urine pH (4.5-7.5) Ur Specific [place] (1.000-1.030) Urine Protein (Negative) Urine Glucose (UA) (Negative) Urine Ketones (Negative) Urine Blood (Negative) Urine Nitrite (Negative) Urine Bilirubin (Negative) Urine Urobilinogen (Negative) Ur Leukocyte Esterase (Negative) Urine WBC (Auto) (0-5) /hpf Urine RBC (Auto) (0-2) /hpf U Hyaline Cast (Auto) (0-2) /lpf U Epithel Cells (Auto) (0-2) /hpf Urine Bacteria (Auto) (None Seen) Adenovirus (PCR) Not Detected (NotDetected) Anaplasma Smear See Comment Babesia Smear See Comment A B. pertussis DNA (PCR) Not Detected (NotDetected) B.parapertussis DNA PCR Not Detected (NotDetected) Lyme Disease Screen Equivocal H (Negative) Lyme Tier 2 IgG Confirm Positive H (Negative) Lyme Tier 2 IgM Confirm Negative (Negative) C. pneumoniae DNA (PCR) Not Detected (NotDetected) Coronavirus OC43 (PCR) Not Detected (NotDetected) Coronavirus HKU1 (PCR) Not Detected (NotDetected) Coronavirus 229E (PCR) Not Detected (NotDetected) SARS-CoV-2 (PCR) Not Detected (NotDetected) Coronavirus NL63 (PCR) Not Detected (NotDetected) Human Metapneumovir PCR Not Detected (NotDetected) Influenza Type A (PCR) Not Detected (NotDetected) Influenza Type B (PCR) Not Detected (NotDetected) M. pneumoniae (PCR) Not Detected (NotDetected) Parainfluenza 1 (PCR) Not Detected (NotDetected) Parainfluenza 2 (PCR) Not Detected (NotDetected) Parainfluenza 3 (PCR) Not Detected (NotDetected) Parainfluenza 4 (PCR) Not Detected (NotDetected) RSV (PCR) Not Detected (NotDetected) Entero/Rhino (PCR) Not Detected (NotDetected) 03/10/24 Range/Units Unknown WBC (4.8-10.8) K/ul RBC (4.20-5.40) M/uL Hgb (12.0-16.0) g/dl Hct (37.0-47.0) % MCV (80.0-100.0) fL MCH (25.0-34.0) pg MCHC (32.0-36.0) g/dL RDW Std Deviation (36.4-46.3) fL RDW Coeff of Radu (11.5-14.5) % Plt Count (130-400) K/uL MPV (9.4-12.4) fL Immature Gran % (Auto) % Neut % (Auto) % Lymph % (Auto) % [place]ahan % (Auto) % Eos % (Auto) % Baso % (Auto) % Neut # (Auto) (1.40-6.50) K/uL Lymph # (Auto) (1.20-3.40) K/uL [place] # (Auto) (0.11-0.59) K/uL Eos # (Auto) (0.00-0.50) K/uL Baso # (Auto) (0.00-0.20) K/uL Immature Gran # (Auto) (0.01-0.20) K/uL RBC Morphology PT (9.0-12.0) Seconds INR (0.9-1.1) Sodium (136-145) mmol/L Potassium (3.5-5.1) mmol/L Chloride (98-107) mmol/L Carbon Dioxide (21-32) mmol/L Anion Gap (3-11) BUN (6-23) mg/dl Creatinine (0.6-1.2) mg/dl Est Cr Clr Drug Dosing ml/min Est GFR ( Amer) ml/min Est GFR (Non-Af Amer) ml/min BUN/Creatinine Ratio (10-20) Glucose (70-99(Fasting)) mg/dl Lactate (0.4-2.0) mmol/L Calcium (8.6-10.3) mg/dl Total Bilirubin (0.2-1.0) mg/dl AST (13-39) U/L ALT (7-52) U/L Alkaline Phosphatase (34-104) U/L Troponin I High Sens (0-14) pg/ml Total Protein (6.0-8.3) gm/dl Albumin (3.4-5.0) gm/dl Globulin (2.5-4.0) gm/dl Albumin/Globulin Ratio (0.9-2) Lipase (11-82) U/L Procalcitonin (0-0.5) ng/ml Urine Color Dark Yellow Urine Appearance Clear (Clear) Urine pH 6.0 (4.5-7.5) Ur Specific [place] 1.012 (1.000-1.030) Urine Protein 2+ H (Negative) Urine Glucose (UA) Negative (Negative) Urine Ketones Negative (Negative) Urine Blood 3+ H (Negative) Urine Nitrite Negative (Negative) Urine Bilirubin 1+ H (Negative) Urine Urobilinogen Negative (Negative) Ur Leukocyte Esterase Trace H (Negative) Urine WBC (Auto) 0-5 (0-5) /hpf Urine RBC (Auto) >20 H (0-2) /hpf U Hyaline Cast (Auto) 0-2 (0-2) /lpf U Epithel Cells (Auto) 0-2 (0-2) /hpf Urine Bacteria (Auto) None Seen (None Seen) Adenovirus (PCR) (NotDetected) Anaplasma Smear Babesia Smear B. pertussis DNA (PCR) (NotDetected) B.parapertussis DNA PCR (NotDetected) Lyme Disease Screen (Negative) Lyme Tier 2 IgG Confirm (Negative) Lyme Tier 2 IgM Confirm (Negative) C. pneumoniae DNA (PCR) (NotDetected) Coronavirus OC43 (PCR) (NotDetected) Coronavirus HKU1 (PCR) (NotDetected) Coronavirus 229E (PCR) (NotDetected) SARS-CoV-2 (PCR) (NotDetected) Coronavirus NL63 (PCR) (NotDetected) Human Metapneumovir PCR (NotDetected) Influenza Type A (PCR) (NotDetected) Influenza Type B (PCR) (NotDetected) M. pneumoniae (PCR) (NotDetected) Parainfluenza 1 (PCR) (NotDetected) Parainfluenza 2 (PCR) (NotDetected) Parainfluenza 3 (PCR) (NotDetected) Parainfluenza 4 (PCR) (NotDetected) RSV (PCR) (NotDetected) Entero/Rhino (PCR) (NotDetected) Administered Medications Acetaminophen (Acetaminophen 325 Mg Tab) 650 mg PO Q6H PRN PRN Reason: Pain or Fever Stop: 04/09/24 15:19 Last Admin: 03/10/24 16:07 Dose: 650 mg Documented By: AMENA Lactated Ringer's (Lr) 1,000 mls @ 80 mls/hr IV .[id number] ANÍBAL Stop: 04/09/24 15:29 Last Admin: 03/10/24 16:05 Dose: 80 mls/hr Documented By: AMENA Discontinued Medications Atovaquone (Atovaquone 750 Mg/5 Ml Udc) 750 mg PO ONCE ONE Stop: 03/10/24 13:36 Last Admin: 03/10/24 14:25 Dose: 750 mg Documented By: DEANN Sodium Chloride (Nss) 1,000 mls @ 999 mls/hr IV .[id number] STA Stop: 03/10/24 13:27 Last Infusion: 03/10/24 14:11 Dose: Infused Documented By: Admin: 03/10/24 12:41 Dose: 999 mls/hr Documented By: DEANN Azithromycin 500 mg/ Dextrose 255 mls @ 127.5 mls/hr IV NOW STA Stop: 03/10/24 15:33 Last Admin: 03/10/24 14:38 Dose: 127.5 mls/hr Documented By: STEVEN Ceftriaxone Sodium (Rocephin) 2,000 mg in 50 mls @ 100 mls/hr IV NOW STA Stop: 03/10/24 14:17 Last Infusion: 03/10/24 14:38 Dose: Infused Documented By: Admin: 03/10/24 13:59 Dose: 100 mls/hr Documented By: DEANN Imaging Data Radiologist's Impression: Chest X-Ray 03/10/24 12:27 SINGLE VIEW CHEST CLINICAL HISTORY: Fever FINDINGS: An AP, portable, upright chest radiograph is compared to study dated 09/16/2019. The top normal for projection noting atherosclerotic calcification of the thoracic aorta. The pulmonary vasculature is noncongested. Chronic interstitial thickening is similar to previous. There is bibasilar scarring/atelectasis. The lungs and pleural spaces are otherwise clear. No pneumothorax is seen. The skeletal structures are osteopenic. The bony thorax is grossly intact. A benign-appearing chondroid lesion is again seen in the right proximal humerus. There are bilateral axillary surgical clips. IMPRESSION: No active disease in the chest. ACT 112: Negative or not required by law. Electronically signed by: Juan Flowers M.D. 03/10/2024 2:02 PM Discharge Plan Visit Data Chief Complaint: Illness Stated Complaint: NOT FEELING WELL SINCE LAST MONDAY ED Provider: Moreno Kramer Discharge Problem: Babesiosis, Lyme disease, Hyponatremia, Weakness, Elevated liver function tests Patient Disposition: Being Evaluated by Hospitalist Forms Stand Alone Forms: My [facility] Prescriptions Prescriptions: No Action esomeprazole magnesium [Nexium] 40 mg capsule,delayed release(DR/EC) 40 mg PO DAILY hydrocortisone 2.5 % cream with perineal applicator 1 applic topical levothyroxine 112 mcg tablet 112 mcg PO QAM albuterol sulfate 90 mcg/actuation HFA aerosol inhaler 2 puff inhalation Q6H PRN (Reason: shortness of breath or wheezing) Qty: 8.5 0RF red yeast rice 600 mg Capsule 600 mg PO QAM calcium carbonate-vitamin D3 [Calcium 600 + D(3)] 600 mg(1,500mg) -400 unit Tablet 1 tab PO QAM omega-3 fatty acids-fish oil [Fish Oil] 360-1,200 mg Capsule 1 cap PO QAM cholecalciferol (vitamin D3) [Vitamin D3] 50 mcg (2,000 unit) Capsule 2,000 unit PO QAM Referrals Referrals: Andrea Cason [Primary Care Provider] -
[2024-03-10 12:59] LABS: Albumin Level 3.2 gm/dl (3.4-5.0); BUN Creatinine Ratio 23.3 (10-20); Bilirubin,Total 4.7 mg/dl (0.2-1.0); Calcium 8.3 mg/dl (8.6-10.3); Est GFR (African American) 89.5 ml/min; Est GFR (Non-African American) 77.2 ml/min; Globulin 3.2 gm/dl (2.5-4.0); Potassium 3.5 mmol/L (3.5-5.1); Total Protein 6.4 gm/dl (6.0-8.3)
[2024-03-10 13:11] LABS: INR 1.2 (0.9-1.1)
[2024-03-10 13:12] LABS: Procalcitonin 3.77 ng/ml (0-0.5)
[2024-03-10 13:33] LABS: Hematocrit (blood only) 30.9 % (37.0-47.0); Hemoglobin 10.8 g/dl (12.0-16.0); Mean Corpuscular Hemoglobin 29.6 pg (25.0-34.0); Mean Corpuscular Volume 84.7 fL (80.0-100.0); Mean Platelet Volume 11.9 fL (9.4-12.4); Platelet Count 35 K/uL (130-400); RDW Coefficient of Variation 14.1 % (11.5-14.5); RDW Standard Deviation 43.8 fL (36.4-46.3); Red Blood Count 3.65 M/uL (4.20-5.40); White Blood Count 8.48 K/ul (4.8-10.8)
[2024-03-10 13:38] LABS: Lyme Screen Rflx Confirmation Equivocal (Negative)
[2024-03-10 13:44] LABS: Adenovirus PCR Not Detected (NotDetected); Bordetella parapertussis PCR Not Detected (NotDetected); Bordetella pertussis PCR Not Detected (NotDetected); Chlamydia pneumoniae PCR Not Detected (NotDetected); Coronavirus 229E PCR Not Detected (NotDetected); Coronavirus CoV-2 (COVID19)PCR Not Detected (NotDetected); Coronavirus HKU1 PCR Not Detected (NotDetected); Coronavirus NL63 PCR Not Detected (NotDetected); Coronavirus OC43PCR Not Detected (NotDetected); Human Metapneumovirus PCR Not Detected (NotDetected); Influenza A PCR Not Detected (NotDetected); Influenza B PCR Not Detected (NotDetected); Mycoplasma pneumoniae PCR Not Detected (NotDetected); Parainfluenza Virus 1 PCR Not Detected (NotDetected); Parainfluenza Virus 2 PCR Not Detected (NotDetected); Parainfluenza Virus 3 PCR Not Detected (NotDetected); Parainfluenza Virus 4 PCR Not Detected (NotDetected); Respiratory Syncytial VirusPCR Not Detected (NotDetected); Rhinovirus/Enterovirus PCR Not Detected (NotDetected)
[2024-03-10 13:50] LABS: Basophils # (auto) 0.01 K/uL (0.00-0.20); Basophils % (auto) 0.1 %; Immature Granulocytes # (auto) 0.08 K/uL (0.01-0.20); Immature Granulocytes % (auto) 0.9 %; Lymphocytes # (auto) 1.23 K/uL (1.20-3.40); Lymphocytes % (auto) 14.5 %; Monocytes # (auto) 1.29 K/uL (0.11-0.59); Monocytes % (auto) 15.2 %; Neutrophils # (auto) 5.87 K/uL (1.40-6.50); Neutrophils % (auto) 69.3 %; RBC Morphology Unremarkable
[2024-03-10] MEDS: cefTRIAXone SODIUM 2,000 MG/50 ML BAG IV STA (13:59)
--- NOTE | 2024-03-10 14:04 | XRay Report ---
SINGLE VIEW CHEST CLINICAL HISTORY: Fever FINDINGS: An AP, portable, upright chest radiograph is compared to study dated 09/16/2019. The top no rmal for projection noting atherosclerotic calcification of the thoracic aorta. The pulmonary vascula ture is noncongested. Chronic interstitial thickening is similar to previous. There is bibasilar scar ring/atelectasis. The lungs and pleural spaces are otherwise clear. No pneumothorax is seen. The skel etal structures are osteopenic. The bony thorax is grossly intact. A benign-appearing chondroid lesio n is again seen in the right proximal humerus. There are bilateral axillary surgical clips. IMPRESSION: No active disease in the chest. ACT 112: Negative or not required by law. Electronically signed by: Juan Flowers M.D. 03/10/2024 2:02 PM
[2024-03-10 14:12] LABS: Lyme Ab IgG 2nd Tier Confirm Positive (Negative); Lyme Ab IgM 2nd Tier Confirm Negative (Negative)
[2024-03-10] MEDS: ATOVAQUONE 750 MG/5 ML UDC PO ONE (14:25)
[2024-03-10] MEDS: AZITHROMYCIN 500 MG in DEXTROSE 5% 250 ML IV STA (14:38)
[2024-03-10 15:01] LABS: Appearance Urine Clear (Clear); Bacteria Urine Automated None Seen (None Seen); Bilirubin Urine 1+ (Negative); Blood Urine 3+ (Negative); Cast Urine Automated 0-2 /lpf (0-2); Color Urine Dark Yellow; Epithelial Cell Urine Auto 0-2 /hpf (0-2); Glucose Urine UA Negative (Negative); Ketones Urine Negative (Negative); Leukocyte Esterase Urine Trace (Negative); Nitrite Urine Negative (Negative); Protein Urine 2+ (Negative); RBC Urine Automated >20 /hpf (0-2); Specific Gravity Urine 1.012 (1.000-1.030); Urobilinogen Urine Negative (Negative); WBC Urine Automated 0-5 /hpf (0-5)
--- NOTE | 2024-03-10 15:15 | History & Physical Report ---
Date of Service March 10, 2024 Assessment & Plan (1) Babesiosis: Plan: Fever, dry cough, and weakness that began on Monday 03/05 Patient denies seeing a tick bite or developing a rash [place], and feeds the deer in her backyard No international travel Transaminitis, thrombocytopenia Babesiosis (+) on arrival Azithromycin 500 mg IV given in the ED Continue with 250mg IV daily Atovaquone 750 mg p.o. BID Supportive care Acetaminophen as needed for pain/fever A.m. CBC, CMP, mag, TSH (2) Lyme disease: Plan: Lyme (+) on arrival Rocephin 2000 mg IV q24h (3) Elevated troponin: Plan: Mild; elevated troponin 23->22 on arrival Clinically, patient denies chest pain, pleuritic CP, or SOB Continuous telemetry monitoring (4) Hyponatremia: Plan: Na 129 on arrival IVF with LR at 80mL/hr Follow a.m. labs (5) Reflex incontinence: Plan: 1 episode of urinary incontinence UA ordered, pending (6) Thrombocytopenia: (7) Elevated transaminase level: Plan Disposition: Obs - Admit to PCU telemetry Full code Regular diet VTE PPx: SCDs; hold chemical DVT PPx in the setting of low platelet count History of Present Illness Chief Complaint: Fever, joint aches Primary Care Provider: Andrea Buckley is a pleasant 79yo female with PMH of breast cancer, hypothyroidism, reflux incontinence, pes anserine bursitis, and lumbar spondylosis. She presented for worsening weakness, body aches, dry cough and fever that first began to develop on Monday 03/05. She went to her PCP on 03/07 and was prescribed cefdinir. She then went to urgent care on Monday, and was given decongestant and antihistamines. She has been taking Tylenol at home for her intermittent fever, with her highest reading being 103.3 F this morning. Patient took all her regular medications today. She has never had a tickborne illness before. She has not noticed any ticks on her body or recent rashes, but she does note that she is outside a lot. No recent hiking. No recent international travel. Patient reports she does live in [place] area with lots of deer. Patient is denies smoking, tobacco use, and recent alcohol use; occasional alcohol use 1-2 glasses of wine per week. No supplemental oxygen at baseline or CPAP at night. Patient is mildly tachycardic around 100 bpm at time of admission; SpO2 93% on RA: Vitals otherwise stable. ED Course: Atovaquone 750mg p.o. NSS 1000 mL IV Rocephin 2000 mg IV Azithromycin 500mg IV ROS: Patient endorses fever, chills, night-sweats, MCDONALD, body aches, joint pain, dry cough, wheezing, and one episode of urinary incontinence while trying to get to bathroom last night (unusual for her; patient attributes it to steroids given at urgent care). Patient denies dizziness, lightheadedness, rashes, chest pain, SOB, pleuritic CP, chest palpitations, hemoptysis, abdominal pain, N/V/D, change in urinary/bowel habits, burning with urination, blood in urine/stool, or numbness/tingling in the arms or legs. Allergies Allergy/AdvReac Type Severity Reaction Status Date / Time Sulfa (Sulfonamide AdvReac Severe GI SYMPTOMS Verified 03/09/24 09:16 Antibiotics) Home Medications Medication Instructions Recorded Confirmed Type calcium carbonate 600 mg-vitamin 1 tab PO QAM 09/09/19 03/10/24 History D3 10 mcg (400 unit) tablet (Calcium 600 + D(3)) cholecalciferol (vitamin D3) 50 2,000 unit PO QAM 09/09/19 03/10/24 History mcg (2,000 unit) capsule (Vitamin D3) omega-3 fatty acids-fish oil 360 1 cap PO QAM 09/09/19 03/10/24 History mg-1,200 mg capsule (Fish Oil) red yeast rice 600 mg capsule 600 mg PO QAM 09/09/19 03/10/24 History esomeprazole magnesium 40 mg 40 mg PO DAILY 05/14/20 03/10/24 History capsule,delayed release (Nexium) hydrocortisone 2.5 % topical cream 1 applic topical 05/16/22 03/09/24 History with perineal applicator levothyroxine 112 mcg tablet 112 mcg PO QAM 05/16/22 03/10/24 History albuterol sulfate 90 mcg/actuation 2 puff inhalation Q6H PRN 03/09/24 03/10/24 Rx aerosol inhaler shortness of breath or wheezing #8.5 grams Past Med/Surg History Problem List (Updated 03/10/24 @ 15:45 by David Coyne PA-C) Elevated transaminase level Thrombocytopenia Hyponatremia Elevated troponin Lyme disease Babesiosis Hematoma of left lower leg Bursitis of hip, right Lumbar spondylosis Status post right partial knee replacement Heartburn controlled with OTC Tums PRN HX: breast cancer s/p chemo/xrt, b/l mastectomy- on anastrazole Hypothyroid Osteoarthritis Encounter for annual routine gynecological examination Reflex incontinence (Acute) Pes anserine bursitis Degenerative arthritis of knee, bilateral Medical History Migraine headache History of hepatitis A Radius distal fracture Surgical History Hx of colonoscopy Hx of breast implants, bilateral Hx of tubal ligation History of carpal tunnel surgery of right wrist History of lumpectomy of both breasts History of mastectomy Family History Mother Breast cancer Pulmonary embolism Father Parkinson disease Denies family history of Ovarian cancer Colorectal cancer Social History Smoking Status: Never smoker Second Hand Exposure: No; Do You Dip or Chew Tobacco: No; Hx Alcohol Use: Yes Alcohol type: wine Hx Substance Use: No Preferred Language: Comoran Communication Ability: Effective Beliefs That Will Affect Care: None Current Living Situation: Spouse Feels Safe at Home: Yes Assistive Devices: Glasses and Walker Review of Systems Review of Systems: See HPI above Physical Exam Physical Exam: General: no acute distress; diaphoretic; pleasant affect; non-toxic appearing; cooperative; SpO2 93% on RA HEENT: normocephalic, atraumatic; no scleral icterus; PERRLA; moist mucus membrane; vision and hearing grossly intact Neck: supple; trachea midline Skin: Jaundice; warm, moist without signs of tenting; no cyanosis; no rashes, bruising, lesions, or erythema noted CV: chest wall NTP; RRR; S1/S2 normal; no murmurs/rubs/gallops; pulses intact and symmetric at radial, DP, and PT Lungs: no acute respiratory distress; symmetrical chest wall expansion; clear breath sounds across all lung schwab w/o adventitious sounds; no wheezing ABD: Soft, NTP; BS present; no rebound/guarding; no distention MSK: no tics or fasciculations; no edema noted in the LEs b/l, nonerythematous Neuro: A&Ox3; normal mood and affect; fluent speech; no focal deficits; sensation grossly intact in the LEs b/l Results & Data Results & Data Vital Signs (Past 12 Hours) Vital Signs Temp Pulse Pulse Resp BP BP Pulse Ox 03/10/24 14:42 98 H 18 113/61 93 03/10/24 13:45 37.3 C 03/10/24 12:37 101 H 03/10/24 12:27 38.1 C H 03/10/24 12:07 37.4 C 105 H 21 96/59 L 92 O2 Del Method 03/10/24 14:42 Room Air 03/10/24 13:45 03/10/24 12:37 03/10/24 12:27 03/10/24 12:07 Room Air Laboratory Results Abnormal lab results 03/10/24 03/10/24 Range/Units 12:25 Unknown RBC 3.65 L (4.20-5.40) M/uL Hgb 10.8 L (12.0-16.0) g/dl Hct 30.9 L (37.0-47.0) % Plt Count 35 L (130-400) K/uL Finney # (Auto) 1.29 H (0.11-0.59) K/uL PT 13.0 H (9.0-12.0) Seconds INR 1.2 H (0.9-1.1) Sodium 129 L (136-145) mmol/L Chloride 97 L (98-107) mmol/L BUN/Creatinine Ratio 23.3 H (10-20) Glucose 144 H (70-99(Fasting)) mg/dl Calcium 8.3 L (8.6-10.3) mg/dl Total Bilirubin 4.7 H (0.2-1.0) mg/dl AST 106 H (13-39) U/L ALT 118 H (7-52) U/L Alkaline Phosphatase 225 H (34-104) U/L Troponin I High Sens 23.0 H (0-14) pg/ml Albumin 3.2 L (3.4-5.0) gm/dl Lipase 5 L (11-82) U/L Procalcitonin 3.77 H (0-0.5) ng/ml Urine Protein 2+ H (Negative) Urine Blood 3+ H (Negative) Urine Bilirubin 1+ H (Negative) Ur Leukocyte Esterase Trace H (Negative) Urine RBC (Auto) >20 H (0-2) /hpf Babesia Smear See Comment A Lyme Disease Screen Equivocal H (Negative) Lyme Tier 2 IgG Confirm Positive H (Negative) Diagnostic Findings Chest X-Ray 03/10/24 12:27 SINGLE VIEW CHEST CLINICAL HISTORY: Fever FINDINGS: An AP, portable, upright chest radiograph is compared to study dated 09/16/2019. The top normal for projection noting atherosclerotic calcification of the thoracic aorta. The pulmonary vasculature is noncongested. Chronic interstitial thickening is similar to previous. There is bibasilar scarring/atelectasis. The lungs and pleural spaces are otherwise clear. No pneumothorax is seen. The skeletal structures are osteopenic. The bony thorax is grossly intact. A benign-appearing chondroid lesion is again seen in the right proximal humerus. There are bilateral axillary surgical clips. IMPRESSION: No active disease in the chest. ACT 112: Negative or not required by law. Electronically signed by: Juan Flowers M.D. 03/10/2024 2:02 PM ECG Additional Comments: ECG revealed sinus tachycardia at 103 bpm; QTc 482 Code Status & VTE Plan Code Status Full code VTE Prophylaxis Plan VTE Prophylaxis will be ordered: Yes Supervising Physician Co-Signing Physician Notes I have personally seen, evaluated and examined the patient. I have also person ally discussed the management of the patient with the resident physician/LEOBARDO and I agree with the exam findings documented in the history and physical examination and the documented assessment and plan unless otherwise stated below. Brief Exam: In general very pleasant 79-year-old female who is alert and oriented x 3 at the time of my exam she is accompanied by both her and her brother at the time of my examination. She interacts appropriately pleasantly. HEENT: Normocephalic atraumatic. Heart: Regular rate and rhythm I do not appreciate any murmur or ectopy or rub. Lungs: Are clear. Abdomen: Soft nontender positive bowel sounds no appreciable hepatoorganomegaly. Extremities: Intact no appreciable clubbing cyanosis or edema Neurologically she is alert and oriented x 3 she has had no confusion she has had no headaches no clinical evidence of neuro Lyme at this time. Assessment/plan: As discussed above. Please refer to orders for further planning. Will continue triple antimicrobial therapy waiting for confirmatory testing for the tickborne illness panel. PG Care Time/CCT Total # of Minutes Spent Total Time Spent with Patient: Total time spent is greater than 50% in coordination of care (as documented) at patient's floor/unit and/or counseling patient: [place] [address] INT INP/OBS CARE 3/75MIN Patient Type New Medical Decision Making High Complexity Diagnoses Babesiosis B60.00 Lyme disease A69.20 Elevated troponin R79.89 Hyponatremia E87.1 Reflex incontinence N39.498 Thrombocytopenia D69.6 Elevated transaminase level R74.01
[2024-03-10] MEDS: LACTATED RINGER'S 1,000 ML IV SCH (16:05)
[2024-03-10] MEDS: ACETAMINOPHEN 325 MG TAB PO PRN (16:07)
[2024-03-10] MEDS: BENZONATATE 100 MG CAPSULE PO PRN (22:11)
[2024-03-10 23:50] LABS: Appearance Urine Clear (Clear); Bacteria Urine Automated None Seen (None Seen); Bilirubin Urine 1+ (Negative); Blood Urine 3+ (Negative); Cast Urine Automated 0-2 /lpf (0-2); Color Urine Dark Yellow; Epithelial Cell Urine Auto 0-2 /hpf (0-2); Glucose Urine UA Negative (Negative); Ketones Urine Negative (Negative); Leukocyte Esterase Urine Trace (Negative); Nitrite Urine Negative (Negative); Protein Urine 2+ (Negative); RBC Urine Automated >20 /hpf (0-2); Specific Gravity Urine 1.016 (1.000-1.030); Urobilinogen Urine Positive (Negative); WBC Urine Automated 0-5 /hpf (0-5)
[2024-03-11] MEDS ORDERED: Nursing to Pharmacy Communication SCH (01:00)
[2024-03-11] MEDS: LABETALOL HCL IV 5 MG/ML 20ML IV STA (04:23)
[2024-03-11] MEDS: ALBUT/IPRATROP 3MG/0.5MG NEB 3 ML VIAL NEB STA (05:36)
--- NOTE | 2024-03-11 05:38 | Communication Note ---
Date of Service: March 11, 2024 Patient with increasing oxygen requirement at night. Was on 1 L and then required 4 L. Saw patient bedside, dry cough that has not been improving. Patient continues to feel achy, feverish, and unwell. Physical exam revealed tachycardia, mild rales bilaterally bibasilar, no wheezing or rhonchi. No lower extremity edema. Chest x-ray ordered which showed increase in pulmonary congestion. Will stop fluids at this time, give 20 mg Lasix, 25 mg of albumin 25%. No history of congestive heart failure, though unsure if patient has ever had a echo in the past. Will closely monitor respiratory status till the a.m.
[2024-03-11] MEDS: FUROSEMIDE INJ 20 MG/2 ML VIAL IV ONE (05:45)
[2024-03-11] MEDS: ALBUMIN 25% 25 GM/100 ML VIAL IV ONE (05:46)
[2024-03-11] MEDS: LEVOTHYROXINE SODIUM 112 MCG TABLET PO SCH (05:47)
[2024-03-11 06:35] LABS: Hematocrit (blood only) 27.1 % (37.0-47.0); Hemoglobin 9.2 g/dl (12.0-16.0); Mean Corpuscular Hemoglobin 28.9 pg (25.0-34.0); Mean Corpuscular Hgb Conc 33.9 g/dL (32.0-36.0); Mean Corpuscular Volume 85.2 fL (80.0-100.0); Mean Platelet Volume 12.9 fL (9.4-12.4); Platelet Count 44 K/uL (130-400); RDW Coefficient of Variation 14.3 % (11.5-14.5); RDW Standard Deviation 44.5 fL (36.4-46.3); Red Blood Count 3.18 M/uL (4.20-5.40); White Blood Count 7.07 K/ul (4.8-10.8)
[2024-03-11 07:05] LABS: Albumin Level 2.7 gm/dl (3.4-5.0); BUN Creatinine Ratio 21.7 (10-20); Bilirubin,Total 3.7 mg/dl (0.2-1.0); Calcium 7.8 mg/dl (8.6-10.3); Creatinine Clr Calc Pharmacy 58.2 ml/min; Est GFR (African American) 99.1 ml/min; Est GFR (Non-African American) 85.5 ml/min; Globulin 2.7 gm/dl (2.5-4.0); Magnesium 1.6 mg/dl (1.7-2.4); Potassium 3.1 mmol/L (3.5-5.1); Total Protein 5.4 gm/dl (6.0-8.3)
--- NOTE | 2024-03-11 07:06 | XRay Report ---
XR chest 1V portable CLINICAL HISTORY: worsening SOB TECHNIQUE: Single frontal radiograph of the chest was obtained. Comparison: Comparison is made to chest radiograph 03/10/2024 FINDINGS: No lines and tubes are seen. The cardiomediastinal silhouette is stable. Bilateral lower lung predomi nant airspace opacities are seen. Prominent pulmonary vasculature and Salty B-lines are seen. No shonna dence of pleural effusion or pneumothorax. IMPRESSION: Moderate pulmonary edema, new from prior exam. Bibasilar airspace opacities may represent atelectasis , pneumonia, aspiration, or alveolar edema. ACT 112: Negative or not required by law. Electronically signed by: Ayden Mcmanus M.D. 03/11/2024 7:04 AM
[2024-03-11 07:19] LABS: Basophils # (auto) 0.01 K/uL (0.00-0.20); Basophils % (auto) 0.1 %; Immature Granulocytes # (auto) 0.04 K/uL (0.01-0.20); Immature Granulocytes % (auto) 0.6 %; Lymphocytes # (auto) 1.23 K/uL (1.20-3.40); Lymphocytes % (auto) 17.4 %; Monocytes # (auto) 1.08 K/uL (0.11-0.59); Monocytes % (auto) 15.3 %; Neutrophils # (auto) 4.71 K/uL (1.40-6.50); Neutrophils % (auto) 66.6 %; RBC Morphology Unremarkable; Thyroid Stimulating Hormone 2.215 uIu/ml (0.300-4.500)
--- NOTE | 2024-03-11 07:56 | Electrocardiogram Report ---
Test Reason : Blood Pressure : / mmHG Vent. Rate : 103 BPM Atrial Rate : 103 BPM P-R Int : 136 ms QRS Dur : 066 ms QT Int : 368 ms P-R-T Axes : 036 049 060 degrees QTc Int : 482 ms Sinus tachycardia Possible Old Septal infarct Abnormal ECG When compared with ECG of 16-SEP-2019 08:43, Criteria for Septal infarct now present QT has lengthened Confirmed by Dino Guerrero ([id number]) on 03/11/2024 7:56:16 AM Referred By: REFERRED SELF Confirmed By:Dino Guerrero
--- NOTE | 2024-03-11 08:00 | Hospitalist Progress Note ---
Date of Service March 11, 2024 Assessment & Plan (1) Babesiosis: Plan: Babesiosis - Acute -Fever, dry cough, and weakness that began on Monday 03/05. Patient denies seeing a tick bite or developing a rash. No international travel. -Positive for Babesiosis on smear, PCR pending. - s/p Azithromycin 500 mg IV given in the ED * Blood cultures pending * Continue Azithromycin 250mg IV daily and Atovaquone 750 mg p.o. BID * Acetaminophen as needed for pain/fever Transaminitis - Resolving -In the context of Babesiosis, downtrending Thrombocytopenia - Resolving -In the context of Babesiosis, trending upward Pulmonary Edema, Mild - Acute -Patient endorsing cough. Increased oxygen demand on 4L nasal cannula due to SOB overnight -Occurred after receiving fluids -XR chest 1V portable: Moderate pulmonary edema, new from prior exam. Bibasilar airspace opacities may represent atelectasis, pneumonia, aspiration, or alveolar edema. * Wean off oxygen, continue to evaluate * If symptoms worsen, consider echo and Lasix * Flutter valve respiratory therapy Positive Lyme Disease Screen and IgG -Negative IgM. Positive screen and IgG likely attributed to prior infection. -s/p Rocephin 2000 mg IV in ED * Discontinued Rocephin Elevated troponin - Resolving -Patient does not endorse chest pain or SOB -23.0 on admission, downtrending Hyponatremia - Resolving -Na 129 on arrival -s/p LR at 80mL/hr * Trend labs Reflex incontinence - Acute -1 episode of urinary incontinence * UA pending FEN: Heart healthy Code status: full code DVT ppx: SCDs; hold chemical DVT PPx in the setting of low platelet count Dispo: Obs - Admit to PCU telemetry (2) Lyme disease: (3) Elevated troponin: (4) Hyponatremia: (5) Reflex incontinence: (6) Thrombocytopenia: (7) Elevated transaminase level: Admission and Anticipated Discharge Date Admission Date: March 10, 2024 Supervising Physician Co-Signing Physician Notes Attending Physician Supervision Note: I independently interviewed and examined the patient and verified the mathew history and physical, reviewed labs and image studies and agree with findings and care plan noted above. fever +, breathing improved, no chest pain, no abd pain. comfortable in bed, basilar crackles, no resp distress, RRR, Babesiosis - atovaquone and azithromycin Pulmonary edema with hypoxia - with 1L fluid - s/p one dose lasix. assess cardiac fx with echo. Equivocal lyme testing - neg IgM titer. received dose of rocephine in ED. will d/c since IgM neg. Subjective Overnight events: Still coughing and feeling weak, but improved from yesterday. Cough improved with albuterol. Indorsing mild headache, responsive to Tylenol. No longer having fever, chills, urinary incontinence. Bowel/bladder concerns: Patient is able to urinate and defecate without concern. Nutritional Status: Has been able to eat and drink without concern. Mobility: Has been able to ambulate without assistance or issue. Review of Systems 2 Review of Systems: See HPI, otherwise negative Physical Exam 2 Physical Exam: Constitutional: Frail-appearing, no acute distress HEENT: NCAT, no conjunctival injection, no scleral icterus. On nasal cannula. CV: regular rate and rhythm, no murmur appreciated, extremities well-perfused, no LE edema Resp: CTABL, no wheezes/rales/rhonchi appreciated,no increased work of breathing. Deep breathing triggers cough. GI: soft, nondistended, nontender, BS normoactive MSK: no gross deformities appreciated Skin: warm, dry, no rash appreciated. Large circular area of edema and purple/brown discoloration on the the left medical knee leg. Neuro: alert, oriented, no focal neurologic deficits appreciated Results & Data Results & Data Vital Signs (Past 12 Hours) Vital Signs Temp Pulse Pulse Resp BP BP Pulse Ox 03/11/24 05:24 100.0 F H 103 H 124/65 03/11/24 05:08 94 03/11/24 05:08 03/11/24 04:39 106 H 151/79 H 03/11/24 04:31 101.1 F H 93 03/11/24 04:23 118 H 164/86 H 03/11/24 03:01 98.1 F 106 H 18 148/74 H 90 03/10/24 23:48 94 03/10/24 23:22 03/10/24 23:11 98.1 F 109 H 18 105/58 L 88 L 03/10/24 23:00 111 H 03/10/24 20:00 99.0 F 116 H 18 134/71 94 03/10/24 19:24 100.0 F H 119 H 18 147/79 H 93 O2 Del Method O2 Flow Rate 03/11/24 05:24 03/11/24 05:08 Nasal Cannula 4 03/11/24 05:08 Nasal Cannula 4 03/11/24 04:39 03/11/24 04:31 Nasal Cannula 2 03/11/24 04:23 03/11/24 03:01 Nasal Cannula 1 03/10/24 23:48 Nasal Cannula 1 03/10/24 23:22 Nasal Cannula 1 03/10/24 23:11 Nasal Cannula 1 03/10/24 23:00 03/10/24 20:00 Room Air 03/10/24 19:24 Room Air Laboratory Results 03/11/24 05:40 03/11/24 05:40 Diagnostic Findings XR chest 1V portable Moderate pulmonary edema, new from prior exam. Bibasilar airspace opacities may represent atelectasis, pneumonia, aspiration, or alveolar edema. Medications Administered Acetaminophen (Acetaminophen 325 Mg Tab) 650 mg PO Q6H PRN PRN Reason: Pain or Fever Stop: 04/09/24 15:19 Last Admin: 03/11/24 09:44 Dose: 650 mg Documented By: Admin: 03/11/24 04:35 Dose: 650 mg Documented By: Admin: 03/10/24 22:11 Dose: 650 mg Documented By: Admin: 03/10/24 16:07 Dose: 650 mg Documented By: AMENA Atovaquone (Atovaquone 750 Mg/5 Ml Udc) 750 mg PO Q12H [facility] Stop: 04/10/24 03:59 Last Admin: 03/11/24 09:45 Dose: 750 mg Documented By: TITI Benzonatate (Benzonatate 100 Mg Capsule) 100 mg PO TID PRN PRN Reason: Cough Stop: 04/09/24 21:42 Last Admin: 03/11/24 03:27 Dose: 100 mg Documented By: Admin: 03/10/24 22:11 Dose: 100 mg Documented By: SAE Levothyroxine Sodium (Levothyroxine Sodium 112 Mcg Tablet) 112 mcg PO DAILYBB ANÍBAL Stop: 04/10/24 06:29 Last Admin: 03/11/24 05:47 Dose: 112 mcg Documented By: KERLINE Pantoprazole Sodium (Pantoprazole 40 Mg Tab) 40 mg PO DAILY ANÍBAL Stop: 04/10/24 08:59 Last Admin: 03/11/24 09:44 Dose: 40 mg Documented By: TITI
[2024-03-11] MEDS ORDERED: ATOVAQUONE 750 MG/5 ML UDC PO SCH (09:00)
[2024-03-11] MEDS: PANTOprazole 40 MG TAB PO SCH (09:44)
[2024-03-11] MEDS: ATOVAQUONE 750 MG/5 ML UDC PO SCH (09:45)
[2024-03-11] MEDS ORDERED: cefTRIAXone SODIUM 2,000 MG/50 ML BAG IV SCH (14:00)
[2024-03-11] MEDS: AZITHROMYCIN 250 MG in DEXTROSE 5% 250 ML IV SCH (15:42)
[2024-03-11] MEDS: MELATONIN 3 MG TAB PO STA (21:58)
[2024-03-12 06:29] LABS: Hematocrit (blood only) 24.5 % (37.0-47.0); Hemoglobin 8.6 g/dl (12.0-16.0); Mean Corpuscular Hemoglobin 29.5 pg (25.0-34.0); Mean Corpuscular Hgb Conc 35.1 g/dL (32.0-36.0); Mean Corpuscular Volume 83.9 fL (80.0-100.0); Mean Platelet Volume 12.3 fL (9.4-12.4); Platelet Count 50 K/uL (130-400); RDW Coefficient of Variation 14.3 % (11.5-14.5); RDW Standard Deviation 44.3 fL (36.4-46.3); Red Blood Count 2.92 M/uL (4.20-5.40); White Blood Count 5.86 K/ul (4.8-10.8)
[2024-03-12 06:38] LABS: Albumin Level 2.7 gm/dl (3.4-5.0); BUN Creatinine Ratio 21.7 (10-20); Bilirubin,Total 3.8 mg/dl (0.2-1.0); Calcium 8.1 mg/dl (8.6-10.3); Creatinine Clr Calc Pharmacy 58.2 ml/min; Est GFR (African American) 99.1 ml/min; Est GFR (Non-African American) 85.5 ml/min; Globulin 2.8 gm/dl (2.5-4.0); Potassium 2.9 mmol/L (3.5-5.1); Total Protein 5.5 gm/dl (6.0-8.3)
--- NOTE | 2024-03-12 07:15 | Hospitalist Progress Note ---
Date of Service March 12, 2024 Assessment & Plan (1) Babesiosis: Plan: Babesiosis - Acute -Fever, dry cough, and weakness that began on Monday 03/05. Patient denies seeing a tick bite or developing a rash. No international travel. -Positive for Babesiosis on smear, PCR pending. - s/p Azithromycin 500 mg IV given in the ED * Blood cultures pending * Continue Azithromycin 250mg IV daily and Atovaquone 750 mg p.o. BID * Acetaminophen as needed for pain/fever Transaminitis - Resolving -In the context of Babesiosis, downtrending Thrombocytopenia - Resolving -In the context of Babesiosis, trending upward Pulmonary Edema, Mild - Acute -Patient endorsing cough. Requiring nasal cannula intermittently. -Occurred after receiving fluids -XR chest 1V portable: Moderate pulmonary edema, new from prior exam. Bibasilar airspace opacities may represent atelectasis, pneumonia, aspiration, or alveolar edema. * Wean off oxygen, continue to evaluate * If symptoms worsen, consider echo and Lasix * Flutter valve respiratory therapy Positive Lyme Disease Screen and IgG -Negative IgM. Positive screen and IgG likely attributed to prior infection. -s/p Rocephin 2000 mg IV in ED * Discontinued Rocephin Elevated troponin - Resolving -Patient does not endorse chest pain or SOB -23.0 on admission, downtrending Hyponatremia - Resolving -Na 129 on arrival -s/p LR at 80mL/hr * Trend labs Reflex incontinence - Acute -1 episode of urinary incontinence * UA pending FEN: Heart healthy Code status: full code DVT ppx: SCDs; hold chemical DVT PPx in the setting of low platelet count Dispo: Obs - Admit to PCU telemetry (2) Lyme disease: (3) Elevated troponin: (4) Hyponatremia: (5) Reflex incontinence: (6) Thrombocytopenia: (7) Elevated transaminase level: Admission and Anticipated Discharge Date Admission Date: March 11, 2024 Subjective Overnight events: Required oxygen intermittently overnight. Still coughing and feeling weak, but improved from yesterday. Cough improved with albuterol. Indorsing mild headache, responsive to Tylenol. No longer having fever, chills, urinary incontinence. Bowel/bladder concerns: Patient is able to urinate and defecate without concern. Nutritional Status: Has been able to eat and drink without concern. Mobility: Has been able to ambulate without assistance or issue. Mild to moderate B. microti infection typically occurs in immunocompetent patie nts and is associated with parasitemia <4 percent. Patients usually experience gradual onset of fatigue and malaise accompanied by fever. Other common symptoms include chills, sweats, myalgia, anorexia, headache, nausea, and dry cough. Laboratory abnormalities include low hematocrit, low hemoglobin, elevated lactate dehydrogenase, low haptoglobin, reticulocytosis, thrombocytopenia, elevated liver enzymes, and elevated creatinine. Review of Systems Review of Systems: See HPI, otherwise negative Physical Exam Physical Exam: Constitutional: Frail-appearing, no acute distress HEENT: NCAT, no conjunctival injection, no scleral icterus. On nasal cannula. CV: regular rate and rhythm, no murmur appreciated, extremities well-perfused, no LE edema Resp: CTABL, no wheezes/rales/rhonchi appreciated,no increased work of breathing. Deep breathing triggers cough. GI: soft, nondistended, nontender, BS normoactive MSK: no gross deformities appreciated Skin: warm, dry, no rash appreciated. Large circular area of edema and purple/brown discoloration on the the left medical knee leg. Neuro: alert, oriented, no focal neurologic deficits appreciated Results & Data Results & Data Vital Signs (Past 12 Hours) Vital Signs Temp Pulse Pulse Resp BP Pulse Ox O2 Del Method 03/12/24 02:19 97.9 F 88 18 103/64 93 Nasal Cannula 03/11/24 23:00 112 H 03/11/24 22:36 100.0 F H 106 H 18 132/71 90 Nasal Cannula 03/11/24 19:15 97.9 F 97 H 18 116/67 91 Room Air O2 Flow Rate 03/12/24 02:19 2 03/11/24 23:00 03/11/24 22:36 2 03/11/24 19:15 Laboratory Results Hbg - 8.6 (downtrending) Platelet 50 (up) Sodium 132 (inc) Potassium 2.9 (down) Bilirubin Stable AST/ALT/alk phos (down)
[2024-03-12 07:31] LABS: Basophils # (auto) 0.01 K/uL (0.00-0.20); Basophils % (auto) 0.2 %; Eosinophils # (auto) 0.04 K/uL (0.00-0.50); Eosinophils % (auto) 0.7 %; Immature Granulocytes # (auto) 0.02 K/uL (0.01-0.20); Immature Granulocytes % (auto) 0.3 %; Lymphocytes # (auto) 1.13 K/uL (1.20-3.40); Lymphocytes % (auto) 19.3 %; Monocytes # (auto) 0.85 K/uL (0.11-0.59); Monocytes % (auto) 14.5 %; Neutrophils # (auto) 3.81 K/uL (1.40-6.50)
[2024-03-12 08:26] LABS: Magnesium 1.8 mg/dl (1.7-2.4)
[2024-03-12] MEDS: POTASSIUM CHLORIDE / WTR 10 MEQ/100 ML PLCT IV SCH (08:31)
--- NOTE | 2024-03-12 10:47 | Hospitalist Progress Note ---
Date of Service March 12, 2024 Assessment & Plan (1) Babesiosis: (2) Lyme disease: (3) Elevated troponin: (4) Hyponatremia: (5) Reflex incontinence: (6) Thrombocytopenia: (7) Elevated transaminase level: Plan Babesiosis - Acute - Fever, dry cough, and weakness that began on Monday 03/05. - Patient denies seeing a tick bite or developing a rash. 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 - Blood cultures negative for 24 hrs - Continue Azithromycin 250mg IV daily and Atovaquone 750 mg p.o. BID Consider total of 7-10 days of therapy - Acetaminophen as needed for pain/fever Pulmonary Edema, Mild - Resolved -Yesterday night developed SOB and was found to have pulm edema on CXR -Improved after single dose of Lasix. No recurrence -Currently O2 sats appropriate while at room air -If SOB or O2 sats begin to fall again, would consider repeat CXR and possible TTE - Continue IS and Flutter valve respiratory therapy Transaminitis - Resolving - Jaundice - In the context of Babesiosis, downtrending Thrombocytopenia - Resolving - In the context of Babesiosis, trending upward Hyponatremia - Resolving - Na 132 today - Continue to trend labs Positive Lyme Disease Screen and IgG - Negative IgM. Positive screen and IgG likely attributed to prior infection. - s/p Rocephin 2000 mg IV in ED. Discontinued. Elevated troponin - Patient does not endorse chest pain or SOB - Peaked at 23 Reflex incontinence - Acute - 1 episode of urinary incontinence - Possibly due to IVF - Continue to monitor FEN: Heart healthy Code status: full code DVT ppx: SCDs; hold chemical DVT PPx in the setting of low platelet count Dispo: Discharge back home once symptoms and respiratory status improves; if prolonged hospitalization or weakness, would add PT/OT eval prior to discharge to assess needs Admission and Anticipated Discharge Date Admission Date: March 11, 2024 Supervising Physician Co-Signing Physician Notes Attending Physician Supervision Note: I independently interviewed and examined the patient and verified the mathew history and physical, reviewed labs and image studies and agree with findings and care plan noted above. Babesiosis - atovaquone and azithromycin Hyperbilirubinemia - sec to babesiosis. follow. Pulmonary edema with hypoxia - with 1L fluid - s/p one dose lasix. Echo with elevated RH pressure and LVH. Closely monitor fluid status. Equivocal lyme testing - neg IgM titer. received dose of rocephine in ED. d/colin since IgM neg. Subjective Reports improvement with SOB but still having dry cough especially with deep breath, and difficulty with inspiration. Tessalon perles helped with cough. Otherwise no concerns. Review of Systems Review of Systems: As per HPI. Physical Exam Physical Exam: GENERAL: AAOx3, sitting on bed with breakfast, afebrile, calm, NAD HEAD: NC, AT EYES: EOM intact, NIK, non-injected conjunctiva, no scleral icterus THROAT: normal to visual inspection CARDIO: RRR, no r/m/g RESPIRATORY: CTA bilaterally, no crackles or wheezing appreciated, breathing at room air, normal respiratory effort, no respiratory distress GI: soft, non-distended, non-tender EXTREMITIES: no swelling or calf tenderness in b/l LE SKIN: no rashes Results & Data Results & Data Vital Signs (Past 12 Hours) Vital Signs Temp Pulse Pulse Resp BP Pulse Ox O2 Del Method 03/12/24 08:00 90 03/12/24 08:00 Room Air 03/12/24 07:45 36.6 C 89 17 115/70 92 Room Air 03/12/24 02:19 36.6 C 88 18 103/64 93 Nasal Cannula 03/11/24 23:00 112 H O2 Flow Rate 03/12/24 08:00 03/12/24 08:00 03/12/24 07:45 03/12/24 02:19 2 03/11/24 23:00 Resident Activity Tracking Resident Involvement: Resident Care Provided Care Provided: Adult Hospital Medicine
--- NOTE | 2024-03-12 13:28 | XCELERA ---
[id number]
--- NOTE | 2024-03-12 16:33 | XRay Report ---
XR chest 1V portable CLINICAL HISTORY: shortness of breath; cough TECHNIQUE: Single frontal radiograph of the chest was obtained. Comparison: Comparison is made to chest radiograph 03/11/2024 FINDINGS: No lines and tubes are seen. The cardiomediastinal silhouette is stable. Prominence and cephalization of the vasculature is seen. No evidence of pleural effusion or pneumothorax. IMPRESSION: Previously noted pulmonary edema has improved residual mild edema remains. ACT 112: Negative or not required by law. Electronically signed by: Ayden Mcmanus M.D. 03/12/2024 4:32 PM
[2024-03-12 17:43] LABS: Bilirubin Direct 1.9 mg/dl (0-0.2); Bilirubin,Total 3.7 mg/dl (0.2-1.0)
[2024-03-12 17:49] LABS: BUN Creatinine Ratio 21.5 (10-20); Calcium 7.8 mg/dl (8.6-10.3); Creatinine Clr Calc Pharmacy 53.7 ml/min; Est GFR (African American) 96.5 ml/min; Est GFR (Non-African American) 83.3 ml/min; Potassium 3.6 mmol/L (3.5-5.1)
[2024-03-12] MEDS: POTASSIUM CHLORIDE / WTR 10 MEQ/100 ML PLCT IV ONE (18:18)
[2024-03-12 18:39] LABS: HepB Surface Ag with confirm Negative (Negative)
[2024-03-12 18:45] LABS: HepC Ab Rflx HepCQuant RNA Negative (Negative)
[2024-03-12] MEDS: MELATONIN 3 MG TAB PO STA (22:06)
[2024-03-12] MEDS: BENZONATATE 100 MG CAPSULE PO PRN (22:06)
[2024-03-13 06:25] LABS: Albumin Globulin Ratio 0.8 (0.9-2); Albumin Level 2.6 gm/dl (3.4-5.0); BUN Creatinine Ratio 18.3 (10-20); Bilirubin,Total 3.4 mg/dl (0.2-1.0); Calcium 8.1 mg/dl (8.6-10.3); Creatinine Clr Calc Pharmacy 63.1 ml/min; Est GFR (African American) 99.1 ml/min; Est GFR (Non-African American) 85.5 ml/min; Globulin 3.3 gm/dl (2.5-4.0); Potassium 3.5 mmol/L (3.5-5.1); Total Protein 5.9 gm/dl (6.0-8.3)
[2024-03-13 06:50] LABS: Basophils # (auto) 0.02 K/uL (0.00-0.20); Basophils % (auto) 0.4 %; Eosinophils # (auto) 0.02 K/uL (0.00-0.50); Eosinophils % (auto) 0.4 %; Hemoglobin 8.7 g/dl (12.0-16.0); Immature Granulocytes # (auto) 0.02 K/uL (0.01-0.20); Immature Granulocytes % (auto) 0.4 %; Lymphocytes # (auto) 1.28 K/uL (1.20-3.40); Lymphocytes % (auto) 22.9 %; Mean Corpuscular Hemoglobin 29.4 pg (25.0-34.0); Mean Corpuscular Hgb Conc 34.8 g/dL (32.0-36.0); Mean Corpuscular Volume 84.5 fL (80.0-100.0); Mean Platelet Volume 11.2 fL (9.4-12.4); Monocytes # (auto) 0.88 K/uL (0.11-0.59); Monocytes % (auto) 15.7 %; Neutrophils # (auto) 3.37 K/uL (1.40-6.50); Neutrophils % (auto) 60.2 %; Platelet Count 81 K/uL (130-400); RDW Coefficient of Variation 14.6 % (11.5-14.5); RDW Standard Deviation 45.1 fL (36.4-46.3); Red Blood Count 2.96 M/uL (4.20-5.40); White Blood Count 5.59 K/ul (4.8-10.8)
--- NOTE | 2024-03-13 09:53 | Hospitalist Progress Note ---
Date of Service March 13, 2024 Assessment & Plan (1) Babesiosis: (2) Lyme disease: (3) Elevated troponin: (4) Hyponatremia: (5) Reflex incontinence: (6) Thrombocytopenia: (7) Elevated transaminase level: Plan Babesiosis - Acute - Fever, dry cough, and weakness that began on Monday 03/05. - Patient denies seeing a tick bite or developing a rash. - Positive for Babesiosis on smear, PCR also positive. - Blood cultures negative for 48 hrs - Continue Azithromycin 250mg IV daily and Atovaquone 750 mg p.o. BID Consider total of 7-10 days of therapy - Acetaminophen as needed for pain/fever Pulmonary Edema, Mild - Resolved -Yesterday night developed SOB and was found to have pulm edema on CXR - TTE normal save for pulmonary HTN with normal b/l ventricular function - Improved after single dose of Lasix. Repeat CXR yesterday with improved, mild pulm edema. Another dose of Lasix 20 mg given - Currently O2 sats appropriate while at room air but patient with persistent cough - Continue IS and Flutter valve respiratory therapy Transaminitis - Resolving - Jaundice - In the context of Babesiosis - Mild increase in liver enzymes today but T.bili improving - No abdominal symptoms, still - Hepatitis panel negative for Hep Bs Ag and Hep C, but Hep A and Hep Bc Ag pending - Continue to monitor am labs Thrombocytopenia - Resolving - In the context of Babesiosis, trending upward Anemia - Possibly related to Babesiosis - Today hgb stable - Continue to monitor am labs Hyponatremia - Decreased to 129 (128 yesterday) - Could be related to Atovaquone - Hyponatremia labs ordered but not collected - Continue to monitor with am labs given lasix dose today Positive Lyme Disease Screen and IgG - Negative IgM. Positive screen and IgG likely attributed to prior infection. - s/p Rocephin 2000 mg IV in ED. Discontinued. Elevated troponin - Patient does not endorse chest pain or SOB - Peaked at 23 Reflex incontinence - Acute - 1 episode of urinary incontinence - Continue to monitor FEN: Heart healthy Code status: full code DVT ppx: SCDs; hold chemical DVT PPx in the setting of low platelet count Dispo: Discharge back home once symptoms and respiratory status improves; if prolonged hospitalization or weakness, would add PT/OT eval prior to discharge to assess needs Admission and Anticipated Discharge Date Admission Date: March 11, 2024 Supervising Physician Co-Signing Physician Notes Attending Physician Supervision Note: I independently interviewed and examined the patient and verified the mathew history and physical, reviewed labs and image studies and agree with findings and care plan noted above. Subjective Reporting persistent cough. SOB somewhat improved. Denies other symptoms such as abdominal pain or other symptoms. Review of Systems Review of Systems: As per HPI. Physical Exam Physical Exam: GENERAL: AAOx3, sitting on bed with breakfast, afebrile, calm, NAD HEAD: NC, AT EYES: EOM intact, NIK, non-injected conjunctiva, mild janduce noted THROAT: normal to visual inspection CARDIO: RRR, no r/m/g RESPIRATORY: CTA bilaterally, no crackles or wheezing appreciated, breathing at room air, normal respiratory effort, no respiratory distress GI: soft, non-distended, non-tender EXTREMITIES: no swelling or calf tenderness in b/l LE SKIN: no rashes Results & Data Results & Data Vital Signs (Past 12 Hours) Vital Signs Temp Pulse Pulse Resp BP Pulse Ox O2 Del Method 03/13/24 07:42 36.6 C 83 18 113/61 92 Room Air 03/13/24 03:19 36.8 C 107 H 18 139/80 91 Room Air 03/13/24 00:27 115 H 03/12/24 22:55 37.1 C 109 H 18 138/75 90 Room Air Resident Activity Tracking Resident Involvement: Resident Care Provided Care Provided: Adult Hospital Medicine
[2024-03-13] MEDS: FUROSEMIDE INJ 20 MG/2 ML VIAL IV ONE (10:23)
[2024-03-13 14:32] LABS: Babesia microti DNA Detected (Not Detected)
[2024-03-13] MEDS: COUGH DROP (SUGAR FREE) LOZ 24 LOZ/1 BOX BUCCAL PRN (15:26)
[2024-03-13] MEDS: MELATONIN 3 MG TAB PO PRN (22:54)
[2024-03-14 06:52] LABS: Albumin Globulin Ratio 0.8 (0.9-2); Albumin Level 2.6 gm/dl (3.4-5.0); BUN Creatinine Ratio 24.6 (10-20); Bilirubin,Total 2.2 mg/dl (0.2-1.0); Calcium 8.2 mg/dl (8.6-10.3); Creatinine Clr Calc Pharmacy 66.4 ml/min; Est GFR (African American) 100.8 ml/min; Est GFR (Non-African American) 86.9 ml/min; Globulin 3.3 gm/dl (2.5-4.0); Potassium 3.3 mmol/L (3.5-5.1); Total Protein 5.9 gm/dl (6.0-8.3)
[2024-03-14 07:21] LABS: Basophils # (auto) 0.02 K/uL (0.00-0.20); Basophils % (auto) 0.4 %; Eosinophils # (auto) 0.08 K/uL (0.00-0.50); Eosinophils % (auto) 1.6 %; Hematocrit (blood only) 25.6 % (37.0-47.0); Hemoglobin 8.6 g/dl (12.0-16.0); Immature Granulocytes # (auto) 0.03 K/uL (0.01-0.20); Immature Granulocytes % (auto) 0.6 %; Lymphocytes # (auto) 1.58 K/uL (1.20-3.40); Lymphocytes % (auto) 30.8 %; Mean Corpuscular Hemoglobin 28.6 pg (25.0-34.0); Mean Corpuscular Hgb Conc 33.6 g/dL (32.0-36.0); Monocytes # (auto) 0.74 K/uL (0.11-0.59); Monocytes % (auto) 14.4 %; Neutrophils # (auto) 2.68 K/uL (1.40-6.50); Neutrophils % (auto) 52.2 %; Platelet Count 118 K/uL (130-400); RDW Coefficient of Variation 14.6 % (11.5-14.5); RDW Standard Deviation 45.2 fL (36.4-46.3); Red Blood Count 3.01 M/uL (4.20-5.40); White Blood Count 5.13 K/ul (4.8-10.8)
[2024-03-14] MEDS: POTASSIUM CHLORIDE CRTAB 20 MEQ TABCR PO SCH (08:35)
[2024-03-14] MEDS: FERROUS SULFATE 325 MG TAB PO SCH (08:44)
--- NOTE | 2024-03-14 10:36 | Hospitalist Progress Note ---
Date of Service March 14, 2024 Assessment & Plan (1) Babesiosis: (2) Elevated troponin: (3) Hyponatremia: (4) Reflex incontinence: (5) Thrombocytopenia: (6) Elevated transaminase level: Plan Babesiosis - Acute - Fever, dry cough, and weakness that began on Monday 03/05. - Positive for Babesiosis on smear, PCR also positive. - Blood cultures negative - Continue Azithromycin 250mg IV daily and Atovaquone 750 mg p.o. BID Consider total of 7-10 days of therapy (currently day 3) - Acetaminophen as needed for pain/fever Pulmonary Edema, Mild - Resolved - Mild pulmonary edema found on CXR after patient developed SOB - TTE normal save for pulmonary HTN with normal b/l ventricular function - S/p Lasix x2 doses - Currently O2 sats appropriate while at room air but patient with persistent cough - Continue IS and Flutter valve respiratory therapy Transaminitis - Resolving - Jaundice resolved and T.bili improving - In the context of Babesiosis - Liver enzymes continue to increase - No abdominal symptoms - Hepatitis panel negative for Hep Bs Ag and Hep C, but Hep A and Hep Bc Ag pending - Will order liver US to evaluate - Continue to monitor am labs Thrombocytopenia - Resolving - In the context of Babesiosis, trending upward Anemia - Possibly related to Babesiosis - Today hgb stable - Continue to monitor am labs Hyponatremia - Increased to 132. Asymptomatic - Could be related to Atovaquone - Hyponatremia labs ordered but not collected - Continue to monitor with am labs Positive Lyme Disease Screen and IgG - Negative IgM. Positive screen and IgG likely attributed to prior infection. - s/p Rocephin 2000 mg IV in ED. Discontinued. Elevated troponin - Patient does not endorse chest pain or SOB - Peaked at 23 Reflex incontinence - Acute - 1 episode of urinary incontinence - Continue to monitor FEN: Heart healthy Code status: full code DVT ppx: SCDs; hold chemical DVT PPx in the setting of low platelet count Admission and Anticipated Discharge Date Admission Date: March 11, 2024 Supervising Physician Co-Signing Physician Notes Attending Physician Supervision Note: I independently interviewed and examined the patient and verified the mathew history and physical, reviewed labs and image studies and agree with findings and care plan noted above. Subjective Patient with persistent but resolving SOB and dry cough. Has been able to ambulate in hallway but feeling some SOB with this. Also referring headache. No abdominal pain, N/V/D, or any other symptom. Review of Systems Review of Systems: As per HPI. Physical Exam Physical Exam: GENERAL: AAOx3, sitting on bed with breakfast, afebrile, calm, NAD HEAD: NC, AT EYES: EOM intact, NIK, non-injected conjunctiva, no jaundice noted THROAT: normal to visual inspection CARDIO: RRR, no r/m/g RESPIRATORY: CTA bilaterally, no crackles or wheezing appreciated, breathing at room air, normal respiratory effort, no respiratory distress GI: soft, non-distended, non-tender EXTREMITIES: no swelling or calf tenderness in b/l LE SKIN: no rashes Results & Data Results & Data Vital Signs (Past 12 Hours) Vital Signs Temp Pulse Pulse Resp BP Pulse Ox O2 Del Method 03/14/24 07:28 36.7 C 88 18 105/64 94 Room Air 03/14/24 02:40 36.6 C 86 18 128/73 93 Room Air 03/13/24 23:21 89 Resident Activity Tracking Resident Involvement: Resident Care Provided Care Provided: Adult Hospital Medicine
[2024-03-14 12:17] LABS: Hepatitis A Antibody IgM NON-REACTIVE (NON-REACTIVE); Hepatitis B Core Antibody IgM NON-REACTIVE (NON-REACTIVE)
--- NOTE | 2024-03-14 19:02 | Ultrasound Report ---
US liver CLINICAL HISTORY: elevated LFT COMPARISON STUDY: CT of the abdomen and pelvis June 02, 2023. FINDINGS: No hepatic lesions are identified. There is no biliary ductal dilatation. The gallbladder i s normal. There are no gallstones. Pancreas is unremarkable by sonography. There is no right hydronep hrosis. IMPRESSION: Unremarkable right upper quadrant ultrasound. ACT 112: Negative or not required by law. Electronically signed by: Aditya Swartz M.D. 03/14/2024 7:01 PM
[2024-03-15 08:27] LABS: Hemoglobin 9.5 g/dl (12.0-16.0); Mean Corpuscular Hemoglobin 29.4 pg (25.0-34.0); Mean Corpuscular Hgb Conc 33.9 g/dL (32.0-36.0); Mean Corpuscular Volume 86.7 fL (80.0-100.0); Mean Platelet Volume 10.7 fL (9.4-12.4); Platelet Count 188 K/uL (130-400); RDW Coefficient of Variation 14.9 % (11.5-14.5); RDW Standard Deviation 46.9 fL (36.4-46.3); Red Blood Count 3.23 M/uL (4.20-5.40); White Blood Count 5.83 K/ul (4.8-10.8)
[2024-03-15 08:48] LABS: Basophils # (auto) 0.02 K/uL (0.00-0.20); Basophils % (auto) 0.3 %; Eosinophils # (auto) 0.11 K/uL (0.00-0.50); Eosinophils % (auto) 1.9 %; Immature Granulocytes # (auto) 0.05 K/uL (0.01-0.20); Immature Granulocytes % (auto) 0.9 %; Lymphocytes # (auto) 2.12 K/uL (1.20-3.40); Lymphocytes % (auto) 36.4 %; Monocytes % (auto) 15.4 %; Neutrophils # (auto) 2.63 K/uL (1.40-6.50); Neutrophils % (auto) 45.1 %; RBC Morphology Unremarkable
[2024-03-15 08:49] LABS: Albumin Globulin Ratio 0.8 (0.9-2); Albumin Level 2.8 gm/dl (3.4-5.0); BUN Creatinine Ratio 21.1 (10-20); Bilirubin,Total 1.6 mg/dl (0.2-1.0); Calcium 8.4 mg/dl (8.6-10.3); Creatinine Clr Calc Pharmacy 66.4 ml/min; Est GFR (African American) 100.8 ml/min; Est GFR (Non-African American) 86.9 ml/min; Globulin 3.7 gm/dl (2.5-4.0); Potassium 4.2 mmol/L (3.5-5.1); Total Protein 6.5 gm/dl (6.0-8.3)
--- NOTE | 2024-03-15 09:18 | Discharge Summary ---
Date of Service March 15, 2024 Admission HPI Per Admitting Provider Ina is a pleasant 79yo female with PMH of breast cancer, hypothyroidism, reflux incontinence, pes anserine bursitis, and lumbar spondylosis. She presented for worsening weakness, body aches, dry cough and fever that first began to develop on Monday 03/05. She went to her PCP on 03/07 and was prescribed cefdinir. She then went to urgent care on Monday, and was given decongestant and antihistamines. She has been taking Tylenol at home for her intermittent fever, with her highest reading being 103.3 F this morning. Patient took all her regular medications today. She has never had a tickborne illness before. She has not noticed any ticks on her body or recent rashes, but she does note that she is outside a lot. No recent hiking. No recent international travel. Patient [place] Patient is denies smoking, tobacco use, and recent alcohol use; occasional alcohol use 1-2 glasses of wine per week. No supplemental oxygen at baseline or CPAP at night. Patient is mildly tachycardic around 100 bpm at time of admission; SpO2 93% on RA: Vitals otherwise stable. ED Course: Atovaquone 750mg p.o. NSS 1000 mL IV Rocephin 2000 mg IV Azithromycin 500mg IV ROS: Patient endorses fever, chills, night-sweats, MCDONALD, body aches, joint pain, dry cough, wheezing, and one episode of urinary incontinence while trying to get to bathroom last night (unusual for her; patient attributes it to steroids given at urgent care). Patient denies dizziness, lightheadedness, rashes, chest pain, SOB, pleuritic CP, chest palpitations, hemoptysis, abdominal pain, N/V/D, change in urinary/bowel habits, burning with urination, blood in urine/stool, or numbness/tingling in the arms or legs. Admission Exam Per Admitting Provider General: no acute distress; diaphoretic; pleasant affect; non-toxic appearing; cooperative; SpO2 93% on RA HEENT: normocephalic, atraumatic; no scleral icterus; PERRLA; moist mucus membrane; vision and hearing grossly intact Neck: supple; trachea midline Skin: Jaundice; warm, moist without signs of tenting; no cyanosis; no rashes, bruising, lesions, or erythema noted CV: chest wall NTP; RRR; S1/S2 normal; no murmurs/rubs/gallops; pulses intact and symmetric at radial, DP, and PT Lungs: no acute respiratory distress; symmetrical chest wall expansion; clear breath sounds across all lung schwab w/o adventitious sounds; no wheezing ABD: Soft, NTP; BS present; no rebound/guarding; no distention MSK: no tics or fasciculations; no edema noted in the LEs b/l, nonerythematous Neuro: A&Ox3; normal mood and affect; fluent speech; no focal deficits; sensation grossly intact in the LEs b/l Principal Diagnosis Babesiosis Discharge Exam GENERAL: AAOx3, sitting on bed with breakfast, afebrile, calm, NAD HEAD: NC, AT EYES: EOM intact, NIK, non-injected conjunctiva, no jaundice noted THROAT: normal to visual inspection CARDIO: RRR, no r/m/g RESPIRATORY: CTA bilaterally, breathing at room air, normal respiratory effort, no respiratory distress GI: soft, non-distended, non-tender EXTREMITIES: no swelling or calf tenderness in b/l LE SKIN: no rashes Discharge Data Allergies Allergy/AdvReac Type Severity Reaction Status Date / Time Sulfa (Sulfonamide AdvReac Severe GI SYMPTOMS Verified 03/09/24 09:16 Antibiotics) Consultations 03/10/24 15:19 ED Decision to Admit Stat Ordered Studies 03/14/24 14:09 US liver Routine Hospital Course (1) Babesiosis: (2) Elevated troponin: (3) Hyponatremia: (4) Reflex incontinence: (5) Thrombocytopenia: (6) Elevated transaminase level: Plan Babesiosis - Acute, improving - Fever, dry cough, and weakness that began on Monday 03/05. - Positive for Babesiosis on smear, PCR also positive. - Blood cultures negative - Continue Azithromycin 250mg IV daily and Atovaquone 750 mg p.o. BID after discharge Consider total of 10 days of therapy (met on 03/21/24) - May continue using acetaminophen as needed for pain/fever - Nadia Bone sent to pharmacy for management of cough Transaminitis - Stable - Jaundice resolved and T.bili improving (most recent is 1.6) - In the context of Babesiosis - Liver enzymes elevated, stable - No abdominal symptoms - Hepatitis panel negative for Hep Bs Ag and Hep C, Hep A and Hep Bc Ag non- reactive - Liver US normal - Encourage outpatient f/u. Repeat CMP ordered for 03/18 to re-assess liver enzymes and sodium levels Thrombocytopenia - Resolving - In the context of Babesiosis, trending upward Anemia - Acute, improving - Possibly related to Babesiosis - Today hgb increased to 9.5 - Encourage outpatient f/u. Repeat CBC ordered for 03/18 to re-assess - Script for Ferrous Sulfate 325 mg every other day sent as management Hyponatremia - Resolved - Increased to 135 - Could be related to Atovaquone - Reassess with CMP on 03/18 Pulmonary Edema, Mild - Resolved - Mild pulmonary edema found on CXR after patient developed SOB - TTE normal save for pulmonary HTN with normal b/l ventricular function - S/p Lasix x2 doses - Currently O2 sats appropriate while at room air Positive Lyme Disease Screen and IgG - Negative IgM. Positive screen and IgG likely attributed to prior infection. - s/p Rocephin 2000 mg IV in ED. Discontinued. Elevated troponin - Patient does not endorse chest pain or SOB - Peaked at 23 Reflex incontinence - Resolved - 1 episode of urinary incontinence - No recurrence Will discharge today with above mentioned labs and meds. Advised close PCP f/u after discharge. Total Time Total Time Spent Total Time Spent (In Minutes): As per attending attestation. Discharge Plan Discharge Items Patient Disposition: Home - Self-Care Reason For Visit: LYME/BAB.... Discharge Diagnosis: Babesiosis Activity: Per Instructions section Non-emergency contact: Primary Care Provider Call non-emergency contact if: your symptoms worsen and your temperature is above 101 Follow-up/Referrals: Andrea Cason [Primary Care Provider] - 03/20/24 (THE OFFICE IS CLOSED. PLEASE CONTACT PCP AND MAKE A HOSPITAL FOLLOW UP VISIT IN 7-10 BUSINESSS DAYS.) Diet: Heart Healthy Ambulatory Orders: Complete Blood Count no Diff (Routine) Timeframe: 3 Days Location: Determined by Patient Ordered By: Brianne Villanueva Comprehensive Metabolic Panel (Routine) Timeframe: 3 Days Location: Determined by Patient Ordered By: Brianne Villanueva Addtl Attending Provider Instructions: You were admitted for management of weakness and shortness of breath that was found to be related to babesiosis (tick-born illness). We treated you with lasix (diuretic) when your shortness of breath was found to be related to some fluid in your lungs, and after this fluid was removed with this medication, and with your symptom improvement, your respirations improved as well as your oxygen levels. Your blood count (hemoglobin) and your platelets also were decreased likely due to your current infection. However, follow up blood work showed improvement in both of these, and your anemia improved more with the addition of iron tablets. Therefore, we will be discharging you today with the below- mentioned medications. Of note, your liver enzymes were increasing and then stabilized on the high side. Liver ultrasound we ordered to see if there was anything structural to cause this increase was normal. This increase in liver enzymes could also be related to your current infection. We recommend you get these levels re-checked on Monday-Monday (03/18/24-03/19/24), which was ordered as well as a CBC to re- check your blood counts. A discharge summary will be sent to your primary care physician to ensure continuity of care. Please bring this discharge summary with you to your next office appointment so that your provider can review it at that time. Follow-up appointments: Make a follow-up appointment with your PCP within the next week. It is very important that you follow up with them shortly after discharge from [facility]. Keep all your follow-up appointments as already scheduled. If you cannot make an appointment, notify your provider. Medications: Your medication list has been reviewed and reconciled upon discharge to ensure accuracy and continuity of care. An updated list of all your medications is included with your hospital discharge paperwork. Please review this list closely, and make note of any changes. We sent a new medication called Azithromycin to your pharmacy. Take Azithromycin 250 mg by mouth once daily for 6 more days to complete 10 days of therapy. We sent a new medication called Atovaquone to your pharmacy. Take Atovaquone 750 mg two times a day for 6 more days to complete 10 days of therapy. We sent a new medication called Tessalon Perles to your pharmacy. Take Tessalon Perles 100 mg by mouth three times ad ay (every 8 hours) as needed to manage cough. We sent a new medication called Ferrous Sulfate (iron tablets) to your pharmacy. Take Ferrous sulfate 325mg daily every other day (for example, Monday, Monday, Monday) for management of your anemia. Please drink fluids and include fiber in your diet since this medication may cause some constipation. You also have an order for a CBC and CMP that should be done on Monday or Monday. Please bring these results to discuss with your primary care provider in your follow up appointment next week. If you have any issues filling these prescriptions, please call [phone] and ask to leave a message for Dr. Villanueva. Take your medications as instructed; do not skip a dose of your medicines. Make sure all of your doctors know every medicine you are taking (including hidu-ign-veenfae medicines, vitamins, and supplements). Call your primary care provider before taking any new medicines (including over- the-counter medicines, vitamins, and supplements), because some of these may interact with your current medications, or may make your symptoms worse. Tell your primary care provider if you cannot afford your medications. CONTACT YOUR PRIMARY CARE PROVIDER if you experience any of the following: Worsening of symptoms Fever, chills, or fatigue Difficulty following your treatment plan, or difficulty taking medications CALL 911 OR GO TO THE EMERGENCY DEPARTMENT if you experience any of the foll owing: Sudden, severe abdominal pain or nausea/vomiting Severe chest pain, or chest pain that radiates (moves) to your jaw or arm Sudden, severe shortness of breath or difficulty breathing Thank you for allowing us to participate in your care. Pending Studies at Discharge: No Stand-Alone Forms: [facility], Smoking Cessation Medications and DC Order Prescriptions: New ferrous sulfate 325 mg (65 mg iron) Tablet,Delayed Release (Dr/Ec) 325 mg PO Q OTHER DAY 30 Days Qty: 15 0RF Rx Instructions: Take Monday, Monday, and Monday atovaquone [Mepron] 750 mg/5 mL Suspension 750 mg PO Q12H 6 Days Qty: 60 0RF azithromycin 250 mg tablet 250 mg PO DAILY 6 Days Qty: 6 0RF benzonatate 100 mg capsule 100 mg PO TID PRN (Reason: cough) Qty: 30 0RF Continued esomeprazole magnesium [Nexium] 40 mg capsule,delayed release(DR/EC) 40 mg PO DAILY hydrocortisone 2.5 % cream with perineal applicator 1 applic topical levothyroxine 112 mcg tablet 112 mcg PO QAM albuterol sulfate 90 mcg/actuation HFA aerosol inhaler 2 puff inhalation Q6H PRN (Reason: shortness of breath or wheezing) Qty: 8.5 0RF red yeast rice 600 mg Capsule 600 mg PO QAM calcium carbonate-vitamin D3 [Calcium 600 + D(3)] 600 mg(1,500mg) -400 unit Tablet 1 tab PO QAM omega-3 fatty acids-fish oil [Fish Oil] 360-1,200 mg Capsule 1 cap PO QAM cholecalciferol (vitamin D3) [Vitamin D3] 50 mcg (2,000 unit) Capsule 2,000 unit PO QAM Discharge Orders: Discharge Order (Routine); Ordered 03/15/24 Ordered By: Brianne Villanueva Admission Data Admit Date/Time: 03/11/24 14:51 Attending Provider: Jase Nguyen Admit Provider: Stuart Phelan Primary Care Provider: Andrea Cason Other Providers: Stuart Phelan Other Interventions: Discharge Summary Assessment (RN) Last Done: 03/15/24 14:04 Supervising Physician Co-Signing Physician Notes Attending attestation Pt seen and examined in concert with Dr. Villanueva. In agreement with the documented findings as noted in the resident documentation with any exceptions or additions as noted here. Improving fatigue from admission without complaint of shortness of breath or similar. On examination, S1/S2 nl RRR no MCG. CTAB. Abd NT/ND BS+ve Babesiosis with transaminitis, anemia - complete course of azithromycin and atovaquone as noted. Short term repeat of CBC, CMP to ensure ongoing stability. Else see resident documentation as noted. Total attending physician time spent with this patient's care on the day of discharge: 35 minutes. Resident Activity Tracking Resident Involvement: Resident Care Provided Care Provided: Adult Hospital Medicine
== END 2024-03-15 17:10 | disposition home or self-care (01) | DRG 871 ==
LOC: ED 12:04 → 4W 12:04 → SUATTDRO 15:20 → 4W 20:31 → SUATTDRO 03-11 14:51 → 3W 03-14 20:43